=== PATIENT | female | born 1990 | race Caucasian/White ===

== ENCOUNTER 2018-07-19 19:45 | Outpatient (CLI) | payer BC ==
[~2018-07-19 19:45] MED LIST: CHLO1CAP PO; FAMO20TA5 PO; HYOS0.1217 PO; LANS30CA PO; NORE1TAB30 PO
== END 2018-07-20 06:00 | disposition home or self-care (01) ==
LOC: SLEEP 19:45
PROVIDERS: ATTEND Nurse Practitioner Family
DX: G47.10 Hypersomnia, unspecified (principal); G47.00 Insomnia, unspecified; G47.61 Periodic limb movement disorder
CPT/HCPCS: 95810

== ENCOUNTER → 2018-11-02 | Outpatient (CLI) | payer BC ==
--- NOTE | 2018-11-02 07:59 | Diagnostic Imaging Report ---
PROCEDURE: US Gallbladder. TECHNIQUE: Multiple real-time grayscale images were obtained over the right upper quadrant in various projections. INDICATION: Right upper quadrant pain. The gallbladder appeared normal. The wall non-thickened. No pericholecystic edema or fluid. No stone or sludge. The partially visualized common bile duct nondilated where seen, distally was obscured by gas. The visualized portions of the pancreas were unremarkable. The unobstructed right kidney appeared normal. There is no ascites or fluid collection. IMPRESSION: No hepatobiliary abnormality, unobstructed right kidney, no acute finding. Dictated by: Dictated on workstation # [id number]
== END ==
LOC: RAD 06:58
PROVIDERS: ATTEND Family Medicine
DX: R10.11 Right upper quadrant pain (principal)
CPT/HCPCS: 76705

== ENCOUNTER → 2018-11-17 | Outpatient (CLI) | payer BC ==
[~2018-11-17] MED LIST changes: +CATHETER FLUSH 10 ML SYR IV PRN
--- NOTE | 2018-11-17 12:54 | Diagnostic Imaging Report ---
Indication: Right upper quadrant pain. Patient was administered 5.4 mCi technetium 99m Choletec intravenously and imaging over the abdomen was performed. At 45 minutes, patient ingested 8 ounces of Ensure and a gallbladder ejection fraction was calculated. There is homogeneous uptake of activity by the liver. Prompt excretion of activity into the common duct and gallbladder is identified. There is normal passage of activity into the small bowel. Gallbladder ejection fraction is normal at 62%. Impression: Normal HIDA scan and gallbladder ejection fraction. Dictated by: Dictated on workstation # [id number]
== END ==
LOC: CARD 10:36
PROVIDERS: ATTEND Nurse Practitioner Family
DX: R10.11 Right upper quadrant pain (principal)
CPT/HCPCS: 78227

== ENCOUNTER 2018-11-22 05:40 | Outpatient (CLI) | payer BC ==
[~2018-11-22] VITALS: Ht 170.2 cm; Wt 54.4 kg
[~2018-11-22 05:40] MED LIST changes: -CATHETER FLUSH 10 ML SYR IV PRN
[2018-11-22] MEDS ORDERED: bcp PO (13:37)
[2018-11-22] MEDS ORDERED: CHOL500044 PO (13:37)
[2018-11-22] MEDS ORDERED: OMEP40CA36 PO (13:37)
[2018-11-22] MEDS ORDERED: ALPR0.5T PO (13:37)
[2018-11-22] MEDS ORDERED: DULO30CA3 PO (13:37)
[2018-11-22] MEDS ORDERED: HYOS-20 PO (13:37)
== END 2018-11-22 13:40 | disposition home or self-care (01) ==
LOC: PREOP 05:40
PROVIDERS: ATTEND Surgery
DX: Z01.818 Encounter for other preprocedural examination (principal)

== ENCOUNTER 2018-11-25 08:23 | Day surgery (SDC) | payer BC ==
[~2018-11-25] VITALS: Ht 170.2 cm; Wt 54.4 kg
[~2018-11-25 08:23] MED LIST changes: +ALPR0.5T PO; +CHOL500044 PO; +DULO30CA3 PO; +HYOS-20 PO; +OMEP40CA36 PO; +bcp PO
--- OUTSIDE RECORDS SUMMARY | 2018-11-25 08:27 | XMS REPORT | CCD ---
Author Author [facility] Organization [facility] Address [address] [place] [address] Phone Care Team Providers Care Client Consultant Name Role Phone PP Unavailable CCM Unavailable Summary Purpose Interface Exchange Insurance Providers Payer name Policy type / Coverage type Covered constitution party ID Effective Begin Date Effective End Date Blue Cross Blue Shield [facility] Blue Cross/Blue Shield [id number] Unknown Unknown Family history Runs in the family Diagnosis Age At Onset Diabetes mellitus Type 2 Unknown Hypertension Unknown Hypercholesterolemia Unknown Stroke Unknown Myocardial infarction Unknown Skin cancer Unknown Colon cancer Unknown Arthritis Unknown Mother Diagnosis Age At Onset Colitis Unknown Hypertension Unknown Social History Social History Element Codes Description Effective Dates Marital status Unknown Single 10/04/2018 Number of children Unknown 0 10/04/2018 Employment Unknown 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 [employer] 10/04/[address]: 070002221 Never smoker 10/04/[address]: 891558 Currently drinks alcohol 10/04/2018 Frequency of drinks SNOMED CT: 987836828 1-2 drinks per week 10/04/2018 Allergies, Adverse Reactions, Alerts Substance Reaction Codes Entered Date Inactivated Date Status NO KNOWN DRUG ALLERGIES Unknown 10/04/2018 No Inactive Date Active Past Medical History Illness Codes Condition Status Onset Date Resolved Date Periodic limb movement disorder ICD-9: 327.51 ICD-10: G47.61 Active 10/04/2018 Unknown Right upper quadrant pain ICD-9: 789.01 ICD-10: R10.11 Active 10/27/2018 Unknown Encounter for general adult medical examination without abnormal findings ICD-9: V70.0 ICD-10: Z00.00 Active 10/04/2018 Unknown Mixed irritable bowel syndrome ICD-9: 564.1 ICD-10: K58.2 Active 10/04/2018 Unknown Problems Condition Codes Effective Dates Condition Status Periodic limb movement disorder ICD-9: 327.51 ICD-10: G47.61 10/04/2018 Active Right upper quadrant pain ICD-9: 789.01 ICD-10: R10.11 10/27/2018 Active Encounter for general adult medical examination without abnormal findings ICD-9: V70.0 ICD-10: Z00.00 10/04/2018 Active Mixed irritable bowel syndrome ICD-9: 564.1 ICD-10: K58.2 10/04/2018 Active Medications Medication Codes Instructions Start Date Stop Date Status Fill Instructions Questran Light 4 gram oral powder RxNorm: 8641488 1/2 packet PO BID 10/27/2018 11/05/2018 Active pramipexole 1 mg tablet RxNorm: 261128 1 Tablet(s) PO QHS 10/2705/24/2019 Active pramipexole 0.5 mg tablet RxNorm: 791990 1 Tablet(s) PO QHS 10/19/2018 Inactive pramipexole 0.5 mg tablet RxNorm: 056408 1 Tablet(s) PO QHS 10/26/2018 Inactive pramipexole 0.125 mg tablet RxNorm: 730056 1 Tablet(s) PO QHS 10/04/2018 10/19/2018 Inactive Taytulla 1 mg-20 mcg (24)/75 mg (4) capsule RxNorm: 7252424 1 Capsule(s) PO daily No Start Date Active Xanax 0.5 mg tablet RxNorm: 268999 1 Tablet(s) PO as needed No Start Date Active duloxetine 60 mg capsule,delayed release RxNorm: 548076 1 Capsule(s) PO daily No Start Date Active omeprazole 40 mg capsule,delayed release RxNorm: 392387 1 Capsule(s) PO daily No Start Date Active hyoscyamine 0.125 mg sublingual tablet RxNorm: 7031869 1 Tablet(s) SL as needed No Start Date Active Vitamin D3 1,000 unit tablet RxNorm: 349174 1 Tablet(s) PO daily No Start Date Active Medication Administered No Medication Administered data Immunizations No Immunization data Assessments Condition Codes Effective Dates Periodic limb movement disorder ICD-10: G47.61 ICD-9: 327.51 10/27/2018 Right upper quadrant pain ICD-10: R10.11 ICD-9: 789.01 10/27/2018 Mixed irritable bowel syndrome ICD-10: K58.2 ICD-9: 564.1 10/04/2018 Encounter for general adult medical examination without abnormal findings ICD-10: Z00.00 ICD-9: V70.0 10/04/2018 Reason For Visit Reason For Visit Effective Dates Notes spasms/spasticity 10/27/2018 abdominal pain 10/04/2018 Results No Results data Review of Systems System Result Effective Dates Constitutional No recent illness 2018 Constitutional No chills 10/27/2018 Constitutional fatigue 10/27/2018 Constitutional No fever 10/27/2018 Constitutional insomnia 10/27/2018 Constitutional No malaise 10/27/2018 Eyes No vision change 10/27/2018 Ears/Nose/Throat/Neck No dizziness 2018 Ears/Nose/Throat/Neck No dysphagia 2018 Ears/Nose/Throat/Neck No headache 2018 Ears/Nose/Throat/Neck No hearing loss Ears/Nose/Throat/Neck No nasal allergies 10/27/2018 Ears/Nose/Throat/Neck No sore throat Cardiovascular No chest pain/pressure Cardiovascular No dyspnea 10/27/2018 Cardiovascular No edema 10/27/2018 Cardiovascular No exercise intolerance Cardiovascular No fatigue 10/27/2018 Cardiovascular No near-syncope/dizziness 10/27/2018 Respiratory No chest tightness 2018 Respiratory No cough 10/27/2018 Respiratory No dyspnea 10/27/2018 Respiratory No pedal edema 10/27/2018 Gastrointestinal abdominal pain 2018 Gastrointestinal No constipation 2018 Gastrointestinal No diarrhea 10/27/2018 Gastrointestinal No gastroesophageal reflux 10/27/2018 Gastrointestinal nausea 10/27/2018 Genitourinary/Nephrology No dysuria 10/27 Genitourinary/Nephrology No nocturia Genitourinary/Nephrology No urinary incontinence 10/27/2018 Musculoskeletal No stiffness 10/27/2018 Musculoskeletal No swelling 10/27/2018 Musculoskeletal No muscle weakness 2018 Musculoskeletal No myalgias 10/27/2018 Dermatologic No rash 10/27/2018 Dermatologic No sores 10/27/2018 Neurologic No dizziness 10/27/2018 Neurologic No headache 10/27/2018 Neurologic No neck pain 10/27/2018 Neurologic spasms/spasticity 10/27/2018 Neurologic No syncope 10/27/2018 Psychiatric No anxiety 10/27/2018 Psychiatric No depression 10/27/2018 Constitutional No recent illness 2018 Constitutional No chills 10/04/2018 Constitutional fatigue 10/04/2018 Constitutional No fever 10/04/2018 Constitutional insomnia 10/04/2018 Constitutional No malaise 10/04/2018 Eyes No vision change 10/04/2018 Ears/Nose/Throat/Neck No dizziness 2018 Ears/Nose/Throat/Neck No dysphagia 2018 Ears/Nose/Throat/Neck No headache 2018 Ears/Nose/Throat/Neck No hearing loss Ears/Nose/Throat/Neck No nasal allergies 10/04/2018 Ears/Nose/Throat/Neck No sore throat Cardiovascular No chest pain/pressure Cardiovascular No dyspnea 10/04/2018 Cardiovascular No edema 10/04/2018 Cardiovascular No exercise intolerance Cardiovascular No fatigue 10/04/2018 Cardiovascular No near-syncope/dizziness 10/04/2018 Respiratory No chest tightness 2018 Respiratory No cough 10/04/2018 Respiratory No dyspnea 10/04/2018 Respiratory No pedal edema 10/04/2018 Gastrointestinal abdominal pain 2018 Gastrointestinal No constipation 2018 Gastrointestinal No diarrhea 10/04/2018 Gastrointestinal No gastroesophageal reflux 10/04/2018 Genitourinary/Nephrology No dysuria 10/04 Genitourinary/Nephrology No nocturia Genitourinary/Nephrology No urinary incontinence 10/04/2018 Musculoskeletal No stiffness 10/04/2018 Musculoskeletal No swelling 10/04/2018 Musculoskeletal No muscle weakness 2018 Musculoskeletal No myalgias 10/04/2018 Dermatologic No sores 10/04/2018 Neurologic No dizziness 10/04/2018 Neurologic No headache 10/04/2018 Neurologic No neck pain 10/04/2018 Neurologic No syncope 10/04/2018 Psychiatric No anxiety 10/04/2018 Psychiatric No depression 10/04/2018 Gastrointestinal nausea 10/04/2018 Dermatologic No rash 10/04/2018 Neurologic spasms/spasticity 10/04/2018 Physical Exam Exam Name System Name Item Name Status Result Effective Dates Notes Full Exam - General 1995 Constitutional general appearance Development: well developed 10/27/2018 None Full Exam - General 1994 Constitutional general appearance Development: appears stated age 0210/27/2018 None Full Exam - General 1994 Constitutional general appearance Hygiene/Attention to Grooming: good hygiene 10/27/2018 None Full Exam - General 1994 Eyes conjunctiva /eyelids Overall: conjunctiva clear 10/27/2018 None Full Exam - General 1994 Eyes conjunctiva /eyelids Overall: cornea clear 10/27/2018 None Full Exam - General 1994 Eyes conjunctiva /eyelids Overall: eyelids normal 10/27/2018 None Full Exam - General 1994 Eyes pupils and irises Overall: pupils equal, round, reactive to light and accomodation 10/27/2018 None Full Exam - General 1994 Ears/Nose/Throat otoscopic exam Overall: external auditory canals clear 10/27/2018 None Full Exam - General 1994 Ears/Nose/Throat otoscopic exam Overall: tympanic membranes clear 10/27/2018 None Full Exam - General 1994 Ears/Nose/Throat lips/teeth/gingiva Overall: benign lips 10/27/2018 None Full Exam - General 1994 Ears/Nose/Throat lips/teeth/gingiva Overall: normal dentition 10/27/2018 None Full Exam - General 1994 Ears/Nose/Throat oral cavity/pharynx/larynx Overall: oral mucosa clear 10/27/2018 None Full Exam - General 1994 Ears/Nose/Throat oral cavity/pharynx/larynx Overall: oropharyngeal mucosa clear 10/27/2018 None Full Exam - General 1994 Ears/Nose/Throat oral cavity/pharynx/larynx Overall: hypopharynx benign 10/27/2018 None Full Exam - General 1994 Ears/Nose/Throat oral cavity/pharynx/larynx Overall: no masses 10/27/2018 None Full Exam - General 1994 Respiratory auscultation Overall: breath sounds clear bilaterally 10/27/2018 None Full Exam - General 1994 Respiratory respiratory effort/rhythm Overall: no retractions 10/27/2018 None Full Exam - General 1994 Respiratory respiratory effort/rhythm Overall: normal rate 10/27/2018 None Full Exam - General 1994 Cardiovascular extremities Overall: no clubbing 10/27/2018 None Full Exam - General 1994 Cardiovascular auscultation of heart Overall: regular rate 10/27/2018 None Full Exam - General 1994 Cardiovascular auscultation of heart Overall: normal heart sounds 10/27/2018 None Full Exam - General 1994 Abdomen abdominal exam Overall: no tenderness 10/27/2018 None Full Exam - General 1994 Abdomen abdominal exam Overall: normal bowel sounds 10/27/2018 None Full Exam - General 1994 Lymphatic neck nodes Overall: anterior cervical chain benign 10/27/2018 None Full Exam - General 1994 Lymphatic neck nodes Overall: posterior cervical chain benign 10/27/2018 None Full Exam - General 1994 Musculoskeletal spine, ribs and pelvis Overall: spine benign 10/27/2018 None Full Exam - General 1994 Musculoskeletal spine, ribs and pelvis Overall: sacroiliac joint benign 10/27/2018 None Full Exam - General 1994 Musculoskeletal spine, ribs and pelvis Overall: good posture 10/27/2018 None Full Exam - General 1994 Musculoskeletal head and neck Overall: head atraumatic 10/27/2018 None Full Exam - General 1994 Musculoskeletal head and neck Overall: cervical spine benign 10/27/2018 None Full Exam - General 1994 Integument inspection of skin Overall: few scattered moles, no gross abnormalities 10/27/2018 None Full Exam - General 1994 Neurologic deep tendon reflexes Overall: deep tendon reflexes intact 10/27/2018 None Full Exam - General 1994 Neurologic cranial nerves Overall: crainial nerves 2 - 12 grossly intact 10/27/2018 None Full Exam - General 1994 Psychiatric orientation/consciousness Overall: oriented to person, place and time 10/27/2018 None Full Exam - General 1994 Psychiatric mood and affect Overall: normal mood and affect 10/27/2018 None Full Exam - General 1994 Constitutional general appearance Development: well developed 10/04/2018 None Full Exam - General 1994 Constitutional general appearance Development: appears stated age 0110/04/2018 None Full Exam - General 1994 Constitutional general appearance Hygiene/Attention to Grooming: good hygiene 10/04/2018 None Full Exam - General 1994 Eyes conjunctiva /eyelids Overall: conjunctiva clear 10/04/2018 None Full Exam - General 1994 Eyes conjunctiva /eyelids Overall: cornea clear 10/04/2018 None Full Exam - General 1994 Eyes conjunctiva /eyelids Overall: eyelids normal 10/04/2018 None Full Exam - General 1994 Eyes pupils and irises Overall: pupils equal, round, reactive to light and accomodation 10/04/2018 None Full Exam - General 1994 Ears/Nose/Throat otoscopic exam Overall: external auditory canals clear 10/04/2018 None Full Exam - General 1994 Ears/Nose/Throat otoscopic exam Overall: tympanic membranes clear 10/04/2018 None Full Exam - General 1994 Ears/Nose/Throat lips/teeth/gingiva Overall: benign lips 10/04/2018 None Full Exam - General 1994 Ears/Nose/Throat lips/teeth/gingiva Overall: normal dentition 10/04/2018 None Full Exam - General 1994 Ears/Nose/Throat oral cavity/pharynx/larynx Overall: oral mucosa clear 10/04/2018 None Full Exam - General 1994 Ears/Nose/Throat oral cavity/pharynx/larynx Overall: oropharyngeal mucosa clear 10/04/2018 None Full Exam - General 1995 Ears/Nose/Throat oral cavity/pharynx/larynx Overall: hypopharynx benign 10/04/2018 None Full Exam - General 1994 Ears/Nose/Throat oral cavity/pharynx/larynx Overall: no masses 10/04/2018 None Full Exam - General 1994 Respiratory auscultation Overall: breath sounds clear bilaterally 10/04/2018 None Full Exam - General 1994 Respiratory respiratory effort/rhythm Overall: no retractions 10/04/2018 None Full Exam - General 1994 Respiratory respiratory effort/rhythm Overall: normal rate 10/04/2018 None Full Exam - General 1994 Cardiovascular extremities Overall: no clubbing 10/04/2018 None Full Exam - General 1994 Cardiovascular auscultation of heart Overall: regular rate 10/04/2018 None Full Exam - General 1994 Cardiovascular auscultation of heart Overall: normal heart sounds 10/04/2018 None Full Exam - General 1994 Abdomen abdominal exam Overall: no tenderness 10/04/2018 None Full Exam - General 1994 Abdomen abdominal exam Overall: normal bowel sounds 10/04/2018 None Full Exam - General 1994 Lymphatic neck nodes Overall: anterior cervical chain benign 10/04/2018 None Full Exam - General 1994 Lymphatic neck nodes Overall: posterior cervical chain benign 10/04/2018 None Full Exam - General 1994 Musculoskeletal spine, ribs and pelvis Overall: spine benign 10/04/2018 None Full Exam - General 1994 Musculoskeletal spine, ribs and pelvis Overall: sacroiliac joint benign 10/04/2018 None Full Exam - General 1994 Musculoskeletal spine, ribs and pelvis Overall: good posture 10/04/2018 None Full Exam - General 1994 Musculoskeletal head and neck Overall: head atraumatic 10/04/2018 None Full Exam - General 1994 Musculoskeletal head and neck Overall: cervical spine benign 10/04/2018 None Full Exam - General 1994 Integument inspection of skin Overall: few scattered moles, no gross abnormalities 10/04/2018 None Full Exam - General 1994 Neurologic deep tendon reflexes Overall: deep tendon reflexes intact 10/04/2018 None Full Exam - General 1994 Neurologic cranial nerves Overall: crainial nerves 2 - 12 grossly intact 10/04/2018 None Full Exam - General 1994 Psychiatric orientation/consciousness Overall: oriented to person, place and time 10/04/2018 None Full Exam - General 1994 Psychiatric mood and affect Overall: normal mood and affect 10/04/2018 None Procedures No Procedures data Vital Signs Date Vital 10/27/2018 Blood Pressure 1: 130/82 Code : 8480-6 BMI: 19.4 Code : 09432-3 Heart Rate 1 : 116 bpm Height: 5'7" SpO2: 99% Weight: 124 lbs 10/04/2018 Blood Pressure 1: 138/80 Code : 8480-6 BMI: 19.4 Code : 69659-8 Heart Rate 1 : 112 bpm Height: 5'7" SpO2: 99% Weight: 124 lbs Functional Status No Functional Status data History of Present Illness Symptom Name Status Result Effective Date Notes Location on both legs 10/27/2018 None Location on both arms 10/27/2018 None Quality intermittent 10/27/2018 None Onset and Resolution ongoing 10/27/2018 None Onset of Symptom ~1 years ago 10/27/2018 None Frequency of Episodes daily 10/27/2018 None Triggers no known associated factors 10/27/2018 None Limitation on Activities does not limit activities 10/27/2018 None Location diffusely None Quality intermittent 10/04/2018 None Onset of Symptom during tenage years 10/04/2018 None Location on the left leg 10/04/2018 muscle restlessness - worst at night Location on the right leg 10/04/2018 None Advance Directives No Advance Directive data Encounters Encounter Performer Location Codes Date ([id number]) [id number] EST. PATIENT, LEVEL III Diagnosis: Right upper quadrant pain[ICD10: R10.11] Diagnosis: Periodic limb movement disorder[ICD10: G47.61] [facility] CPT-4: 58706 10/27/2018 ([id number]) PREV VISIT NEW AGE 18-39 Diagnosis: Encounter for general adult medical examination without abnormal findings[ICD10: Z00.00] [facility] CPT-4: 83411 10/04/2018 Plan of Care Planned Activity Notes Codes Status Date Visit Plan: Abdominal pain - with diarrhea/loose stools - discussed with pt - will order a gallbladder ultrasound and she will start on questran. - She will have a 10 day trial on the questran. She is to call with her symptoms. Restless Leg Syndrome - uncontrolled symptoms - pt to start on higher dose of pramipexole. 10/27/2018 Patient Education: Patient Medication Summary Completed 10/27/2018 Visit Plan: Well Adult - pt was counseled about diet, exercise, and encouraged to follow a heart healthy diet and increase activity level. The patient was instructed to RTC yearly for well adult exams and PRN for acute illnesses. The pt was also instructed to have yearly labs for check of cholesterol, thyroid, chem panel, CBC, and renal functioning. Restless Leg Syndrome - uncontrolled symptoms - I have recommended pt to start on a low dose of iron two to three times a week - to take with orange juice. RX for pramipexole 0.125mg at [facility]. Irritable bowel syndrome - - avoid food triggers, start on probiotic. 10/04/2018 Appointment: [facility]: [address] [place], [place] [id number] New Patient 10/04/2018 Patient Education: Patient Medication Summary Completed 10/04/2018 Instructions Comment . Well Adult - pt was counseled about diet, exercise, and encouraged to follow a heart healthy diet and increase activity level. The patient was instructed to RTC yearly for well adult exams and PRN for acute illnesses. The pt was also instructed to have yearly labs for check of cholesterol, thyroid, chem panel, CBC, and renal functioning. Restless Leg Syndrome - uncontrolled symptoms - I have recommended pt to start on a low dose of iron two to three times a week - to take with orange juice. RX for pramipexole 0.125mg at HS. Irritable bowel syndrome - - avoid food triggers, start on probiotic. . Abdominal pain - with diarrhea/loose stools - discussed with pt - will order a gallbladder ultrasound and she will start on questran. - She will have a 10 day trial on the questran. She is to call with her symptoms. Restless Leg Syndrome - uncontrolled symptoms - pt to start on higher dose of pramipexole.
--- OUTSIDE RECORDS SUMMARY | 2018-11-25 08:27 | XMS REPORT | CCD ---
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 [employer] 10/04/[address]: 041563245 Never smoker 10/04/[address]: 448439 Currently drinks alcohol 10/04/2018 Frequency of drinks SNOMED CT: 181500407 1-2 drinks per week 10/04/2018 Allergies, Adverse Reactions, Alerts Substance Reaction Codes Entered Date Inactivated Date Status NO KNOWN DRUG ALLERGIES Unknown 10/04/2018 No Inactive Date Active Past Medical History Illness Codes Condition Status Onset Date Resolved Date Encounter for general adult medical examination without abnormal findings ICD-9: V70.0 ICD-10: Z00.00 Active 10/04/2018 Unknown Mixed irritable bowel syndrome ICD-9: 564.1 ICD-10: K58.2 Active 10/04/2018 Unknown Periodic limb movement disorder ICD-9: 327.51 ICD-10: G47.61 Active 10/04/2018 Unknown Problems Condition Codes Effective Dates Condition Status Encounter for general adult medical examination without abnormal findings ICD-9: V70.0 ICD-10: Z00.00 10/04/2018 Active Mixed irritable bowel syndrome ICD-9: 564.1 ICD-10: K58.2 10/04/2018 Active Periodic limb movement disorder ICD-9: 327.51 ICD-10: G47.61 10/04/2018 Active Medications Medication Codes Instructions Start Date Stop Date Status Fill Instructions pramipexole 0.5 mg tablet RxNorm: 261392 1 Tablet(s) PO QHS 2019 Active pramipexole 0.5 mg tablet RxNorm: 879250 1 Tablet(s) PO QHS 10/19/2018 Inactive pramipexole 0.125 mg tablet RxNorm: 362673 1 Tablet(s) PO QHS 10/04/2018 10/19/2018 Inactive Taytulla 1 mg-20 mcg (24)/75 mg (4) capsule RxNorm: 5098064 1 Capsule(s) PO daily No Start Date Active Xanax 0.5 mg tablet RxNorm: 103456 1 Tablet(s) PO as needed No Start Date Active duloxetine 60 mg capsule,delayed release RxNorm: 403927 1 Capsule(s) PO daily No Start Date Active omeprazole 40 mg capsule,delayed release RxNorm: 084647 1 Capsule(s) PO daily No Start Date Active hyoscyamine 0.125 mg sublingual tablet RxNorm: 5982337 1 Tablet(s) SL as needed No Start Date Active Vitamin D3 1,000 unit tablet RxNorm: 258458 1 Tablet(s) PO daily No Start Date Active Medication Administered No Medication Administered data Immunizations No Immunization data Assessments Condition Codes Effective Dates Periodic limb movement disorder ICD-10: G47.61 ICD-9: 327.51 10/04/2018 Mixed irritable bowel syndrome ICD-10: K58.2 ICD-9: 564.1 10/04/2018 Encounter for general adult medical examination without abnormal findings ICD-10: Z00.00 ICD-9: V70.0 10/04/2018 Reason For Visit Reason For Visit Effective Dates Notes abdominal pain 10/04/2018 Results No Results data [...] Effective Dates Notes Full Exam - General 1994 Constitutional general [...] None Full Exam - General 1995 Ears/Nose/Throat lips/teeth/gingiva Overall: benign lips 10/04/2018 None Full Exam - General 1995 Ears/Nose/Throat lips/teeth/gingiva Overall: normal dentition 10/04/2018 None Full Exam - General 1994 Ears/Nose/Throat oral cavity/pharynx/larynx Overall: oral mucosa clear 10/04/2018 None Full Exam - General 1994 Ears/Nose/Throat oral cavity/pharynx/larynx Overall: oropharyngeal mucosa clear 10/04/2018 None Full Exam - General 1994 Ears/Nose/Throat oral cavity/pharynx/larynx Overall: hypopharynx benign 10/04/2018 [...] No Procedures data Vital Signs Date Vital 10/04/2018 Blood Pressure 1: 138/80 Code : 8480-6 BMI: 19.4 Code : 06123-3 Heart Rate 1 : 112 bpm Height: 5'7" SpO2: 99% Weight: 124 lbs Functional Status No Functional Status data History of Present Illness Symptom Name Status Result Effective Date Notes Location diffusely None Quality intermittent 10/04/2018 None Onset of Symptom during tenage years 10/04/2018 None Location on the left leg 10/04/2018 muscle restlessness - worst at night Location on the right leg 10/04/2018 None Advance Directives No Advance Directive data Encounters Encounter Performer Location Codes Date (72078) PREV VISIT NEW AGE 18-39 Diagnosis: Encounter for general adult medical examination without abnormal findings[ICD10: Z00.00] [facility] CPT-4: 59387 10/04/2018 Plan of Care Planned Activity Notes Codes Status Date Visit Plan: Well Adult - pt was [...] on probiotic. 10/04/2018 Appointment: Marielle Haley WPtel: [address] [place], [place] [id number] New Patient 10/04/2018 Patient Education: Patient Medication [...]
--- OUTSIDE RECORDS SUMMARY | 2018-11-25 08:27 | XMS REPORT | CCD ---
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 [employer] 10/04/[address]: 480254864 Never smoker 10/04/[address]: 687785 Currently drinks alcohol 10/04/2018 Frequency of drinks SNOMED CT: 741211894 1-2 drinks per week 10/04/2018 Allergies, Adverse [...] Start Date Stop Date Status Fill Instructions duloxetine 30 mg capsule,delayed release RxNorm: 794361 1 Capsule(s) PO daily 11/11/2018 06/08/2019 Active duloxetine 30 mg capsule,delayed release RxNorm: 673329 1 Capsule(s) PO daily 11/11/2018 11/10/2018 Inactive pramipexole 1 mg tablet RxNorm: 684395 1 Tablet(s) PO QHS 10/2705/24/2019 Active Questran Light 4 gram oral powder RxNorm: 9800119 1/2 packet PO BID 10/27/2018 11/05/2018 Inactive pramipexole 0.5 mg tablet RxNorm: 024174 1 Tablet(s) PO QHS 10/19/2018 Inactive pramipexole 0.5 mg tablet RxNorm: 994713 1 Tablet(s) PO QHS 10/26/2018 Inactive pramipexole 0.125 mg tablet RxNorm: 753160 1 Tablet(s) PO QHS 10/04/2018 10/19/2018 Inactive Taytulla 1 mg-20 mcg (24)/75 mg (4) capsule RxNorm: 0433191 1 Capsule(s) PO daily No Start Date Active Xanax 0.5 mg tablet RxNorm: 327677 1 Tablet(s) PO as needed No Start Date Active omeprazole 40 mg capsule,delayed release RxNorm: 047853 1 Capsule(s) PO daily No Start Date Active hyoscyamine 0.125 mg sublingual tablet RxNorm: 0745532 1 Tablet(s) SL as needed No Start Date Active Vitamin D3 1,000 unit tablet RxNorm: 638175 1 Tablet(s) PO daily No Start Date Active duloxetine 60 mg capsule,delayed release RxNorm: 815470 1 Capsule(s) PO daily No Start Date 11/10/2018 Inactive Medication Administered No Medication Administered data Immunizations [...] 1994 Constitutional general appearance Development: well developed 10/27/2018 [...] Code : 8480-6 BMI: 19.4 Code : 79274-5 Heart Rate 1 : 116 bpm Height: 5'7" SpO2: 99% Weight: 124 lbs 10/04/2018 Blood Pressure 1: 138/80 Code : 8480-6 BMI: 19.4 Code : 75116-1 Heart Rate 1 : 112 bpm Height: [...] data Encounters Encounter Performer Location Codes Date (40741) 65622 EST. PATIENT, LEVEL III Diagnosis: Right upper quadrant pain[ICD10: R10.11] Diagnosis: Periodic limb movement disorder[ICD10: G47.61] [facility] CPT-4: 76819 10/27/2018 (06212) PREV VISIT NEW AGE 18-39 Diagnosis: Encounter for general adult medical examination without abnormal findings[ICD10: Z00.00] [facility] CPT-4: 05866 10/04/2018 Plan of Care Planned Activity Notes [...] start on higher dose of pramipexole. 10/27/2018 Appointment: [facility] WPtel: [address] [place], [place] [phone] (15 min) Moderate 10/27/2018 Patient Education: Patient Medication Summary Completed [...] on probiotic. 10/04/2018 App[facility]ment: [id number] [facility] 10/04/2018 Patient Education: Patient Medication [...]
--- OUTSIDE RECORDS SUMMARY | 2018-11-25 08:28 | XMS REPORT | CCD ---
Author Author [facility] Organization [facility] Address [address] [place] [address] Phone Care Team Providers Care Top Stop Attacher Name Role Phone PP Unavailable CCM Unavailable Summary Purpose Interface Exchange Insurance Providers Payer name Policy type / Coverage type Covered green party ID Effective Begin Date Effective End Date Blue Cross Blue Shield 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 [employer] 10/04/[address]: 083135505 Never smoker 10/04/[address]: 324529 Currently drinks alcohol 10/04/2018 Frequency of drinks SNOMED CT: 570954306 1-2 drinks per week 10/04/2018 Allergies, Adverse [...] Date Stop Date Status Fill Instructions pramipexole 0.125 mg tablet RxNorm: 116622 1 Tablet(s) PO QHS 10/04/2018 05/01/2019 Active Taytulla 1 mg-20 mcg (24)/75 mg (4) capsule RxNorm: 1692685 1 Capsule(s) PO daily No Start Date Active Xanax 0.5 mg tablet RxNorm: 761529 1 Tablet(s) PO as needed No Start Date Active duloxetine 60 mg capsule,delayed release RxNorm: 456010 1 Capsule(s) PO daily No Start Date Active omeprazole 40 mg capsule,delayed release RxNorm: 416427 1 Capsule(s) PO daily No Start Date Active hyoscyamine 0.125 mg sublingual tablet RxNorm: 4865900 1 Tablet(s) SL as needed No Start Date Active Vitamin D3 1,000 unit tablet RxNorm: 474502 1 Tablet(s) PO daily No Start Date [...] - General 1995 Ears/Nose/Throat oral cavity/pharynx/larynx Overall: oropharyngeal mucosa clear [...] Code : 8480-6 BMI: 19.4 Code : 52278-1 Heart Rate 1 : 112 bpm Height: [...] data Encounters Encounter Performer Location Codes Date (94847) PREV VISIT NEW AGE 18-39 Diagnosis: Encounter for general adult medical examination without abnormal findings[ICD10: Z00.00] [facility] CPT-4: 57283 10/04/2018 Plan of Care Planned Activity Notes [...] avoid food triggers, start on probiotic. 10/04/2018 Patient Education: Patient Medication Summary Completed [...]
--- NOTE | 2018-11-25 08:35 | Progress Note-Pre Operative ---
Pre-Operative Progress Note H&P Reviewed The H&P was reviewed, patient examined and no changes noted. Date Seen by Provider: Nov 25, 2018 Time Seen by Provider: 08:30 Date H&P Reviewed: Nov 25, 2018 Time H&P Reviewed: 08:25 Pre-Operative Diagnosis: Symptomatic Biliary dyskinesia, Reflux GUCCI JIMÉNEZ APRN Nov 25, 2018 08:35
[2018-11-25] MEDS ORDERED: HYDR-3816 PO (08:37)
--- NOTE | 2018-11-25 08:39 | Discharge Inst-Surgical ---
D/C Lap Instructions-KIDO New, Converted, or Re-Newed RX: RX on Chart Follow Up Appt in 2 weeks Activity as tolerated No driving for 24 hours No driving while on pain medications Incentive Spirometry use every 2 hours while awake Regular Diet Avoid Alcohol, Caffeine, Spicy [place] and Acid foods. Drink 64 fluid oz or more of fluids per day. Symptoms to Report: Fever over 101 degree F, Nausea/Vomiting Infection Signs and Symptoms to report: Increased redness, Foul odor of wound, Increased drainage Bathing instructions: May shower Operative Area Clean/Dry; Keep incision clean/dry If any problems/questions: Contact your physician or go to Emergency Room GUCCI JIMÉNEZ APRN Nov 25, 2018 08:39
[2018-11-25] MEDS ORDERED: ceFAZolin INJECTION 1,000 MG in WATER (STERILE) FOR INJECTION 10 ML IV ONE (08:45)
[2018-11-25] MEDS ORDERED: ACETAMINOPHEN 325 MG TABLET PO PRN (08:45)
[2018-11-25] MEDS ORDERED: HYDROcodone/APAP 5 MG/325 MG (LORTAB) TAB PO ONE (08:45)
[2018-11-25] MEDS ORDERED: ONDANSETRON 4 MG/2 ML (SDV) Z0FRAN IVP PRN ×2 (08:45→13:15)
[2018-11-25] MEDS ORDERED: LACTATED RINGERS 1,000 ML IV PRN (08:46)
[2018-11-25 08:55] VITALS: BP 124/96
[2018-11-25] MEDS: LACTATED RINGERS 1,000 ML IV PRN ×2 (08:58→11:50)
[2018-11-25] MEDS ORDERED: ONDANSETRON 4 MG/2 ML (SDV) Z0FRAN IV ONE (09:00)
[2018-11-25] MEDS ORDERED: FAMOTIDINE 20MG/2ML IV (PEPCID) IV ONE (09:00)
[2018-11-25] MEDS ORDERED: SCOPOLAMINE 1.5 MG (TRANSDERM-SCOP) PATCH TOP ONE (09:00)
[2018-11-25] MEDS ORDERED: BUP/EPI 0.5% 1:200,000 (SENSORCAINE) 30 ML VIAL ONE (10:15)
[2018-11-25] MEDS ORDERED: fentaNYL INJECTION 100 MCG/2 ML AMP ONE (11:30)
[2018-11-25] MEDS ORDERED: MIDAZOLAM 2 MG/2 ML (VERSED) VIAL ONE (11:30)
[2018-11-25] MEDS ORDERED: GLYCOPYRROLATE 0.2 MG/ML (ROBINUL) 2 ML VIAL ONE (12:37)
[2018-11-25] MEDS ORDERED: proPOfol 200 MG/20 ML (DIPRIVAN) VIAL IV ONE (12:37)
[2018-11-25] MEDS ORDERED: LIDOCAINE PF 2% 5 ML (XYLOCAINE) VIAL ONE (12:37)
[2018-11-25] MEDS ORDERED: NEOSTIGMINE 1 MG/ML 5 ML SYRINGE ONE (12:37)
[2018-11-25] MEDS ORDERED: SEVOFLURANE (ULTANE) 15 ML INHAL SOLN ONE (12:37)
[2018-11-25] MEDS ORDERED: DEXAMETHASONE 10 MG/ML (DECADRON) 1 ML VIAL ONE (12:37)
[2018-11-25] MEDS ORDERED: ONDANSETRON 4 MG/2 ML (SDV) Z0FRAN ONE (12:37)
[2018-11-25] MEDS ORDERED: ROCURONIUM 10 MG/ML 5 ML SYRINGE IV ONE (12:37)
--- NOTE | 2018-11-25 13:11 | Progress Note-Post Operative ---
Post-Operative Progess Note Surgeon (s)/Application Support Lead (s) Surgeon JOHANNY RUIZ MD Application Support Lead: kellie vizcaino CANE FLUME WATCHER Pre-Operative Diagnosis Symptomatic Biliary dyskinesia, Reflux Post-Operative Diagnosis same. reflux esophagitis(stage 2), small HH(1.5cm), moderate gastritis. Procedure & Operative Findings Date of Procedure 11/25/18 Procedure Performed/Findings laparoscopic cholecystectomy. EGD with bx. Anesthesia Type GET Estimated Blood Loss Estimated blood loss (mL): minimal Specimens/Packing Specimens Removed gallbladder, ge jxn, antrum JOHANNY RUIZ MD Nov 25, 2018 13:11
[2018-11-25] MEDS ORDERED: HYDROmorphone 2 MG/ML VIAL (DILAUDID) IV ONE (13:15)
[2018-11-25] MEDS ORDERED: morphine INJ 10 MG/ML 1ML (SYR OR VIAL) IVP ONE (13:15)
[2018-11-25 14:05] VITALS: BP 126/71
--- NOTE | 2018-11-25 14:20 | Anesthesia-General Post-Op ---
General Patient Condition Mental Status/LOC: Same as Preop Cardiovascular: Satisfactory Nausea/Vomiting: Absent Respiratory: Satisfactory Pain: Controlled Complications: Absent Post Op Complications Complications None Follow Up Care/Instructions Patient Instructions None needed. Anesthesia/Patient Condition Patient Condition Patient is doing well, no complaints, stable vital signs, no apparent adverse anesthesia problems. No complications reported per nursing. MEME DUARTE CRNA Nov 25, 2018 14:20
[2018-11-25] MEDS: morphine INJ 10 MG/ML 1ML (SYR OR VIAL) IVP PRN ×4 (14:27→14:30)
[2018-11-25 14:35] VITALS: BP 111/71
[2018-11-25 15:05] VITALS: BP 109/73
[2018-11-25 15:45] VITALS: BP 109/73
--- NOTE | 2018-11-25 18:03 | OPERATIVE REPORT ---
DATE OF SERVICE: 11/25/2018 ATTENDING PRIMARY CARE PHYSICIAN: Dr. Haley. PREOPERATIVE DIAGNOSES: Symptomatic biliary dyskinesia, gastroesophageal reflux disease, peptic ulcer disease. POSTOPERATIVE DIAGNOSES: Chronic acalculous cholecystitis with cholesterolosis of the gallbladder. Reflux esophagitis stage II, small hiatal hernia 1.5 cm in size, moderate gastritis with slight increased rugal folds. PROCEDURE: Laparoscopic cholecystectomy, EGD with biopsy. SURGEON: Johanny Naranjo MD ROTARY DRILLER HELPER: Augustus Sweet APRN ANESTHESIA: General endotracheal. ESTIMATED BLOOD LOSS: Minimal. FINDINGS: Chronic acalculous cholecystitis with cholesterolosis of the gallbladder. Reflux esophagitis stage II, small hiatal hernia 1.5 cm in size, moderate gastritis with slight increased rugal folds. DISPOSITION: The patient tolerated the procedure well. INDICATION: The patient is a 28-year-old female known to us. We had seen her for peptic ulcer disease and underwent an EGD back in 2010. She was found to have a reflux esophagitis as well as gastritis; however, biopsies were negative for H. pylori as well as negative for Huff's esophagus. She has had a right upper abdominal quadrant pain usually after meals as well as associated nausea and diarrhea. She reports that this has been going on for several years; however, has become much more significant in the past 3 months. She states that she also does have radiation of pain towards the back. A HIDA scan was performed, which did show a low ejection fraction as well as reproduction of symptoms consistent with a biliary dyskinesia. She is also having epigastric burning sensation as well as crampy pain, which may also indicate continued peptic ulcer disease as well as reflux esophagitis. PROCEDURE IN DETAIL: The patient was brought to the operating room, laid supine on the table. After adequate IV pain and sedative medications and general endotracheal intubation, the abdomen was prepped and draped in standard surgical fashion. A 0.5% Marcaine with epinephrine was used to anesthetize the overlying skin in the left upper abdominal quadrant. A small transverse skin incision was made using a 15 blade. An 0 silk suture was applied to the medial aspect of the incision for retraction and a Veress needle was inserted with a low opening pressure of 0 mmHg and the abdomen was insufflated to 15 mmHg pressure. The Veress needle was removed and a 5 mm Xcel trocar was placed, followed by a 5 mm 45-degree angle laparoscope visualizing the peritoneal cavity. A 4-quadrant abdominal exploration was performed. The gallbladder was slightly distended. It was visualized that omentum, liver, stomach, small bowel appeared normal. Under direct visualization, we then proceeded to place a supraumbilical 10 mm port after the skin and peritoneal lining were anesthetized using 0.5% Marcaine with epinephrine and a transverse skin incision was made using a 15 blade. In a similar manner, a right upper abdominal quadrant 5 mm port was placed. The patient was then placed in reverse Trendelenburg position as well as plane right side up and left side down. The fundus of the gallbladder was then retracted anteriorly and superiorly. The hepatoduodenal ligament was then opened using cautery as well as blunt dissection using the hook instrument. The entire critical view of safety was identified including the triangle of Calot as well as the cystic duct and artery as the only two structures going into the gallbladder as well as the cystic plate behind the proximal gallbladder. A timeout was then taken. Cystic duct and artery were then clipped proximally, distally and cut with EndoShears. The gallbladder was then dissected off of the liver bed using cautery on the hook instrument with visualization of good hemostasis as well as no leaking ducts of Luschka. The gallbladder was removed through the 10 mm port site using an EndoCatch bag. The 10 mm port site fascia and peritoneum were then closed under direct visualization using Dago-Chuckie device and 0 Vicryl suture. The abdomen was desufflated and the remaining ports were removed. All skin incisions were closed using 4-0 Monocryl running subcuticular suture. Wounds were then cleaned and covered with Dermabond. The patient tolerated this portion of the procedure well. She will be instructed to do no heavy lifting or exertion for the next two weeks and then slowly advance as tolerated and also, start a clear liquid diet; however, avoid fatty or greasy foods and slowly incorporate these over time, which she should be able to tolerate over time. Under the same anesthesia, we then proceeded with the EGD. The mouth piece was applied and an endoscope was placed in the mouth, visualizing the pharynx and hypopharyngeal region. Vocal cords, epiglottis and vallecula were identified and appeared to be normal. The endoscope was then gently intubated. The esophageal opening and esophagus insufflated. The endoscope was then advanced to the first, second and third portion of esophagus. At the level of the GE junction, reflux esophagitis stage II identified. There were no ulcers or strictures identified in this region. A biopsy was taken with forceps with visualization of good hemostasis. The endoscope was then advanced in the stomach and endoscope retroflexed, visualizing a small hiatal hernia, approximately 1.5 cm in size. There was a moderate severity gastritis as well as slight increased rugal folds, which may indicate some level of hypergastrinemia. A biopsy was taken of the stomach antrum with visualization of good hemostasis. The endoscope was then advanced to the pylorus and the first and second portion of the duodenum, which appeared normal with no distal obstructions. The endoscope was then slowly withdrawn while taking a second look and suctioning of residual air with no additional findings. The patient tolerated the procedure well. We will await the biopsy results. She does have a moderate severity gastritis as well as potential for hypergastrinemia, which may be secondary to chronic proton pump inhibitor use. However, there are other etiologies, cannot be ruled out. We will proceed with recommendation of the necessary lifestyle and diet accommodation including small and more frequent meals, avoidance of eating at night as well as head elevation while lying supine. She also needs to avoid caffeinated beverages, spicy, greasy and acidic foods. We will also have her discontinue omeprazole and start a trial of Protonix 40 mg daily. Job ID: [id number] DocumentID: [id number] Dictated Date: 11/25/2018 13:19:55 Executive Vp Date: 11/25/2018 18:02:18 Dictated By: JOHANNY NARANJO MD
== END 2018-11-25 15:45 | disposition home or self-care (01) ==
LOC: SDC 08:23
PROVIDERS: ATTEND Surgery
DX: K81.1 Chronic cholecystitis (principal); K21.0 Gastro-esophageal reflux disease with esophagitis; K44.9 Diaphragmatic hernia without obstruction or gangrene; K29.70 Gastritis, unspecified, without bleeding; F41.9 Anxiety disorder, unspecified; Z79.899 Other long term (current) drug therapy
CPT/HCPCS: 84703; 87081; 88304; 88305

== ENCOUNTER 2020-12-11 10:58 | Outpatient (CLI) | payer BC ==
[~2020-12-11] VITALS: Ht 170.2 cm; Wt 60.5 kg
[~2020-12-11 10:58] MED LIST changes: +HYDR-34 PO; +OMEP40CA27 PO; -OMEP40CA36 PO
[2020-12-11 11:10] VITALS: BP 123/87
[2020-12-11] MEDS ORDERED: IRON DEXTRAN 1,000 MG/NS 250 ML IVPB IV ONE ×2 (12:00)
[2020-12-11] MEDS ORDERED: IRON DEXTRAN 25 MG/NS 6.25 ML TOTAL VOLUME IV ONE ×3 (12:00)
== END 2020-12-11 14:28 | disposition home or self-care (01) ==
LOC: SDC 10:58
PROVIDERS: ATTEND Psychiatry & Neurology Neurology
DX: D50.9 Iron deficiency anemia, unspecified (principal)
CPT/HCPCS: 96365

== ENCOUNTER 2021-08-19 05:35 | Outpatient (RCR) | payer BC ==
[~2021-08-19] VITALS: Ht 170.2 cm; Wt 54.9 kg
[~2021-08-19 05:35] MED LIST changes: +AMPH20CA5 PO; +AMPH20TA2 PO; +CALCIUM PO; +L.AC1CAP6 PO; +LORA-404 PO; +MAG PO; -OMEP40CA27 PO; +OMEP40CA6 PO; +TRZ50T PO; +ZINC PO
== END 2021-08-19 09:31 | disposition home or self-care (01) ==
LOC: PREOP 05:35
PROVIDERS: ATTEND Surgery
DX: Z01.812 Encounter for preprocedural laboratory examination (principal); K21.9 Gastro-esophageal reflux disease without esophagitis; D64.9 Anemia, unspecified; Z20.822 Contact with and (suspected) exposure to COVID-19
CPT/HCPCS: 87635

== ENCOUNTER 2021-08-21 12:07 | Day surgery (SDC) | payer BC ==
[2021-08-21] VITALS (7 sets, daily range): BP systolic 105–118; BP diastolic 63–86
[~2021-08-21] VITALS: Ht 170.2 cm; Wt 54.9 kg
--- OUTSIDE RECORDS SUMMARY | 2021-08-21 12:11 | XMS REPORT | Encounter Summary ---
Author Author [facility] Organization [facility] Address Unknown Phone Unavailable Care Team Providers Care Dance Therapist Name Role Phone Marielle Haley MD PCP Reason for Visit * Reason Comments Medication Refill Encounter Details Care Team Description Date Type Department Gracy Moore MD [address], [place] [address] [place] [id number] 08/14/2021 Refill Neurology: [facility] [address] [place] [address]. [address], [address] [place] [id number] Social History Date Tobacco Use Types Packs/Day Years Used Never Smoker Smokeless Tobacco: Never Used Comments Alcohol Use Standard Drinks/Week 2-3 drinks a week Yes 0 (1 standard drink = 0.6 o z pure alcohol) Alcohol Habits Answer Date Recorded How often do you have a drink containing alcohol? No t asked How many drinks containing alcohol do you have on No t asked a typical day when you are drinking? How often do you have six or more drinks on one Not asked occasion? Comment: 2-3 drinks a week 11/08/2020 Sex Assigned at Date Recorded Female 10/22/2020 12:33 PM [employer] documented as of this encounter Ordered Prescriptions Start Date End Date Prescription Sig Dispensed Refills 09/25/2021 amphetamine-dextroampheta Take 1 30 capsule 0 mine XR (ADDERALL XR) 20 capsule po Q mg capsule AM 10/25/2021 amphetamine-dextroampheta Take 1 30 capsule 0 mine XR (ADDERALL XR) 20 capsule po Q mg capsule AM 08/16/2021 traZODone (DESYREL) 50 mg TAKE 1/2 TO 1 30 tablet 5 tablet TABLET BY MOUTH AT BEDTIME NEEDED FOR SLEEP documented in this encounter Plan of Treatment Not on filedocumented as of this encounter Visit Diagnoses Not on filedocumented in this encounter Discontinued Medications Start Date End Date Medication Sig Discontinue Reason 01/01/2021 08/16/2021 amphetamine-dextroampheta Take one Other mine XR (ADDERALL XR) 20 capsule by mg capsule mouth every morning 07/01/2021 08/16/2021 ADDERALL XR 20 mg capsule TAKE ONE Other CAPSULE BY MOUTH EVERY MORNING 04/23/2021 08/16/2021 amphetamine-dextroampheta Take one Other mine XR (ADDERALL XR) 20 capsule by mg capsule mouth every morning 03/26/2021 08/16/2021 amphetamine-dextroampheta Take one Other mine XR (ADDERALL XR) 20 capsule by mg capsule mouth every morning 01/29/2021 08/16/2021 amphetamine-dextroampheta Take one Other mine XR (ADDERALL XR) 20 capsule by mg capsule mouth every morning 04/23/2021 08/16/2021 traZODone (DESYREL) 50 mg Take tablet one-half tablet to one tablet by mouth at bedtime as needed for Sleep. 07/29/2021 08/16/2021 amphetamine-dextroampheta Take 1 Reorder mine XR (ADDERALL XR) 20 capsule po Q mg capsule AM documented as of this encounter Additional Health Concerns Noted Time Assessment 11/08/2020 9:12 AM [employer] PHQ-9 Depression Total Score: 20 07/17/2021 11:06 AM [employer] A fall risk assessment has been complet ed for the patient 07/17/2021 11:07 AM [employer] PHQ-2 Depression Total Score: 2 documented as of this encounter Care Teams Start Date End Date Dance Therapist Relationship Specialty 11/06/20 Marielle Haley MD PCP - General Family [address] [place] [id number] documented as of this encounter
--- OUTSIDE RECORDS SUMMARY | 2021-08-21 12:11 | XMS REPORT | CCD ---
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 [employer] 10/04/[address]: 746259837 Never smoker 10/04/[address]: 132363 Currently drinks alcohol 10/04 Frequency of drinks SNOMED CT: 688693660 1-2 drinks per week Allergies, Adverse Reactions, Alerts Substance Reaction Codes Entered Date Inactivated Date Status NO KNOWN DRUG ALLERGIES Unknown 10/04/2018 No Inactive Date Active Problems Condition Codes Effective Dates Condition Status Menstrual bleeding problem ICD-10: N93.9 ICD-9: 626.9 10/23/2020 Active Menstrual cycle problem ICD-10: N92.6 ICD-9: 626.4 10/23/2020 Active Generalized anxiety disorder ICD-10: F41.1 ICD-9: 300.00 10/15/2020 Active Major depressive disorder, single episode, moderate IC D-10: F32.1 ICD-9: 296.22 10/27/2019 Active Periodic limb movement disorder ICD-10: G47.61 ICD-9: 327.51 10/04/2018 Active Sinus congestion ICD-10: R09.81 ICD-9: 478.19 10/15/2020 Active Mixed irritable bowel syndrome ICD-10: K58.2 ICD-9: 564.1 10/04/2018 Active Gastro-esophageal reflux disease without esophagitis I CD-10: K21.9 ICD-9: 530.81 02/23/2019 Active Right upper quadrant pain ICD-10: R10.11 ICD-9: 789.01 10/27/2018 Active Encounter for general adult medical examination withou t abnormal findings ICD- 10: Z00.00 ICD-9: V70.0 10/04/2018 Active Medications Medication Codes Instructions Start Date Stop Date Status Fill Instructions duloxetine 60 mg capsule,delayed release RxNorm: 805982 TAKE ONE (1) CAPSULE BY MOUTH DAILY WITH 30 MG CAPSULE TO EQUAL 90 MG 08/12/2021 11/09/2021 Ac tive This prescription was filled on 07/19/2021. Any refills authorized will be placed on file. omeprazole 40 mg capsule,delayed release RxNorm: 262617 TAKE 1 CAPSULE BY MOUTH TWICE DAILY 03/27/2021 07/24/2021 Inactive This prescriptio n was filled on 03/04/2021. Any refills authorized will be placed on file. duloxetine 60 mg capsule,delayed release RxNorm: 789829 TAKE ONE (1) CAPSULE BY MOUTH DAILY WITH 30 MG CAPSULE TO EQUAL 90 MG 11/12/2020 11/12/2020 In active omeprazole 40 mg capsule,delayed release RxNorm: 669092 TAKE 1 CAPSULE BY MOUTH TWICE DAILY 10/05/2020 10/05/2020 Inactive omeprazole 40 mg capsule,delayed release RxNorm: 937770 1C PO BID 03/05/2020 08/01/2020 Inactive lorazepam 0.5 mg tablet RxNorm: 950187 0.5 - 1 Tablet(s) Oral t wo times a day 12/08/2019 01/07/2020 Inactive duloxetine 30 mg capsule,delayed release RxNorm: 703754 1 Capsule(s) Oral every day 10/27/2019 05/24/2020 Inactive this is in addit ion to the 60 mg dose - for a total of 90 mg duloxetine 60 mg capsule,delayed release RxNorm: 061821 1 Capsule(s) Oral every day 10/27/2019 10/21/2020 Inactive this is in addit ion to the 30 mg dose - for a total of 90 mg omeprazole 40 mg capsule,delayed release RxNorm: 574620 1C PO BID 10/03/2019 12/31/2019 Inactive duloxetine 30 mg capsule,delayed release RxNorm: 376842 1 Capsule(s) Oral every day 06/24/2019 10/26/2019 Inactive duloxetine 60 mg capsule,delayed release RxNorm: 794832 1 Capsu le(s) PO daily 04/14/2019 06/23/2019 Inactive this is what she nee ds - not the 30mg dose duloxetine 30 mg capsule,delayed release RxNorm: 302964 1 Capsu le(s) PO daily 04/14/2019 04/14/2019 Inactive omeprazole 40 mg capsule,delayed release RxNorm: 691301 1 Capsu le(s) PO BID 02/23/2019 06/22/2019 Inactive Pristiq 50 mg tablet,extended release RxNorm: 194843 1 Tablet(s ) PO daily 02/23/2019 04/13/2019 Inactive Pristiq 25 mg tablet,extended release RxNorm: 9882201 1 Tablet(s ) PO daily 01/25/2019 01/24/2019 Inactive Pristiq 25 mg tablet,extended release RxNorm: 1813676 1 Tablet(s ) PO daily 01/25/2019 02/22/2019 Inactive Lyrica 50 mg capsule RxNorm: 072656 1 Capsule(s) PO BID 01/07/2019 Inactive Lyrica 50 mg capsule RxNorm: 321391 1 Capsule(s) PO TID 12/23/2018 Inactive Lyrica 50 mg capsule RxNorm: 653242 1 Capsule(s) PO TID 12/23/2018 Inactive duloxetine 30 mg capsule,delayed release RxNorm: 677679 1 Capsu le(s) PO daily 11/11/2018 11/10/2018 Inactive duloxetine 30 mg capsule,delayed release RxNorm: 296064 1 Capsu le(s) PO daily 11/11/2018 01/01/2019 Inactive Questran Light 4 gram oral powder RxNorm: 8148486 1/2 packet PO BID 10/27/2018 11/05/2018 Inactive pramipexole 1 mg tablet RxNorm: 529896 1 Tablet(s) PO QHS 10/27/2018 02/22/2019 Inactive pramipexole 0.5 mg tablet RxNorm: 480831 1 Tablet(s) PO QHS 019 10/19/2018 Inactive pramipexole 0.5 mg tablet RxNorm: 323096 1 Tablet(s) PO QHS 019 10/26/2018 Inactive pramipexole 0.125 mg tablet RxNorm: 115540 1 Tablet(s) PO QHS 10/0410/19/2018 Inactive hyoscyamine 0.125 mg sublingual tablet RxNorm: 7658326 1 Tablet( s) SL as needed 10/04/2018 Active Vitamin D3 1,000 unit tablet RxNorm: 496047 1 Tablet(s) PO daily 09/08 Active Taytulla 1 mg-20 mcg (24)/75 mg (4) capsule RxNorm: 2487305 1 Capsule(s) PO daily 10/31/2020 10/30/2020 Inactive Xanax 0.5 mg tablet RxNorm: 841849 1 Tablet(s) PO as needed 020 12/07/2019 Inactive duloxetine 60 mg capsule,delayed release RxNorm: 761243 1 Capsu le(s) PO daily 04/14/2019 11/10/2018 Inactive omeprazole 40 mg capsule,delayed release RxNorm: 825304 1 Capsu le(s) PO daily 02/23/2019 02/22/2019 Inactive Medication Administered No Medication Administered data Immunizations No Immunization data Results Observation Observation Code Item Item Code Result Date S ervice Location Estrogens, Total LC 362783 ESTROGENS, TOTAL 912 PG/ML Unknown Ferritin Ord22 FERRITIN 47.8 ng/mL 11/20/2020 Unknown Lh Ord19 LH 60.12 mIU/mL 11/20/2020 Unknow n Progesterone Qvi067 Prog 1.49 ng/mL 11/20/2020 Unkno wn Fsh Ord18 FSH 10.07 mlU/ml 11/20/2020 Unknow n Estrogens, Total LC 833369 ESTROGENS, TOTAL 48 PG/ML Unknown FSH/LH E613 FSH <0.3 IU/L 10/25/2020 Unknown FSH/LH E613 LH 0.5 IU/L 10/25/2020 Unknown PROGESTERONE E548 PROGESTERONE <0.10 ng/mL 10/25/2020 U nknown Lipid Ord30 CHOL 238 mg/dL 10/16/2020 Unknown Lipid Ord30 HDL 59.0 mg/dl 10/16/2020 Unknown Lipid Ord30 TRIG 187 mg/dL 10/16/2020 Unknown Lipid Ord30 LDL 142 mg/dL 10/16/2020 Unknown Lipid Ord30 C/HDL 4.0 Ratio 10/16/2020 Unknown Comp Metabolic Rox839 NA 140 mEq/L 10/16/2020 Unkn own Comp Metabolic Fks099 K 4.0 mEq/L 10/16/2020 Unkn own Comp Metabolic Eqv819 CL 108 mEq/L 10/16/2020 Unkn own Comp Metabolic Cfp068 CO2 27.0 mEq/L 10/16/2020 Unk nown Comp Metabolic Bhr345 ANION GAP 9 10/16/2020 Unkn own Comp Metabolic Dyq313 GLUCOSE 100 mg/dL 10/16/2020 Unkn own Comp Metabolic Vuu594 Creat 0.7 mg/dL 10/16/2020 Unkn own Comp Metabolic Svm480 eGFR 114 ml/min/1.73m2 021 Unknown Comp Metabolic Poz363 BUN 10 mg/dL 10/16/2020 Unkn own Comp Metabolic Ydt039 B/C Ratio 15.4 Ratio 10/16/2020 Unk nown Comp Metabolic Rig595 CALCIUM 9.0 mg/dL 10/16/2020 Unkn own Comp Metabolic Cjx437 ALK PHOS 70 U/L 10/16/2020 Unkn own Comp Metabolic Tqe499 AST(SGOT) 17 U/L 10/16/2020 Unkn own Comp Metabolic Ilu147 ALT(SGPT) 19 U/L 10/16/2020 Unkn own Comp Metabolic Jci592 BILI T 0.5 mg/dL 10/16/2020 Unkn own Comp Metabolic Pyf846 ALBUMIN 4.0 g/dL 10/16/2020 Unkn own Comp Metabolic Qdc196 TPRO 6.5 g/dL 10/16/2020 Unkn own Comp Metabolic Law486 GLOB 2.5 g/dL 10/16/2020 Unkn own Comp Metabolic Ifd033 A/G Ratio 1.6 Ratio 10/16/2020 Unkn own Comp Metabolic Dfp016 Osmo 279 mOsmo 10/16/2020 Unkn own Tsh Ord6 TSH (3rd IS) 1.85 uIU/mL 10/16/2020 Unkn own Sed Rate Ord21 ESR 3 mm/hr 10/16/2020 Unknown Ferritin Ord22 FERRITIN 31.5 ng/mL 10/16/2020 Unknown Cbc With Differential Ord2 WBC 5.14 K/ul 10/16/19 21 Unknown Cbc With Differential Ord2 RBC 4.68 M/ul 10/16/19 21 Unknown Cbc With Differential Ord2 HGB 12.5 g/dl 10/16/19 21 Unknown Cbc With Differential Ord2 HCT 39.2 % 10/16/19 21 Unknown Cbc With Differential Ord2 Neut% 47.2 % 10/16/19 21 Unknown Cbc With Differential Ord2 MCV 83.8 fl 10/16/19 21 Unknown Cbc With Differential Ord2 Lymph% 41.2 % 10/16/19 21 Unknown Cbc With Differential Ord2 MCH 26.7 pg 10/16/19 21 Unknown Cbc With Differential Ord2 [place]% 8.9 % 10/16/19 21 Unknown Cbc With Differential Ord2 MCHC 31.9 pg 10/16/19 21 Unknown Cbc With Differential Ord2 Eos% 1.9 % 10/16/19 21 Unknown Cbc With Differential Ord2 PLT 337 K/ul 10/16/19 21 Unknown Cbc With Differential Ord2 Baso% 0.8 % 10/16/19 21 Unknown Cbc With Differential Ord2 RDW 16.9 % 10/16/19 21 Unknown Cbc With Differential Ord2 Neut ABS# 2.42 K/ul 10/16/19 21 Unknown Cbc With Differential Ord2 Lymph ABS# 2.12 K/ul 021 Unknown Cbc With Differential Ord2 [place] ABS# 0.5 K/ul 10/16/19 21 Unknown Cbc With Differential Ord2 Eos ABS# 0.1 K/ul 10/16/19 21 Unknown Cbc With Differential Ord2 Baso ABS# 0.0 K/ul 10/16/19 21 Unknown Tibc Ord40 Iron 98 ug/dl 10/16/2020 Unknown Tibc Ord40 UIBC 289 ug/dL 10/16/2020 Unknown Tibc Ord40 TIBC 387 ug/dL 10/16/2020 Unknown Tibc Ord40 Fe-%Sat 25.3 % 10/16/2020 Unknown Procedures No Procedures data Vital Signs Date Vital 10/15/2020 Blood Pressure 1: 122/74 Code: 8480-6 BMI: 21.9 Code: 74486-1 Heart Rate 1: 103 bpm Height: 5'7" Code: 8302-2 Respiratory Rate: 18 bpm SpO2: 99% Temperature: 36.3 (C) / 97.3 (F) Weight: 140 lbs Code: 10261-4 12/08/2019 Blood Pressure 1: 120/66 Code: 8480-6 BMI: 20.8 Code: 10003-7 Heart Rate 1: 111 bpm Height: 5'7" Code: 8302-2 SpO2: 98% Temperature: 3 6.9 (C) / 98.5 (F) Weight: 133 lbs Code: 37075-2 10/27/2019 Blood Pressure 1: 126/74 Code: 8480-6 BMI: 20.5 Code: 23198-3 Heart Rate 1: 105 bpm Height: 5'7" Code: 8302-2 Respiratory Rate: 16 bpm SpO2: 98% Weight: 131 lbs Code: 75508-8 02/23/2019 Blood Pressure 1: 134/70 Code: 8480-6 BMI: 20.0 Code: 99232-4 Heart Rate 1: 85 bpm Height: 5'7" Code: 8302-2 SpO2: 99% Weight: 128 lb s Code: 57319-3 10/27/2018 Blood Pressure 1: 130/82 Code: 8480-6 BMI: 19.4 Code: 74762-7 Heart Rate 1: 116 bpm Height: 5'7" Code: 8302-2 SpO2: 99% Weight: 124 lb s Code: 08502-8 10/04/2018 Blood Pressure 1: 138/80 Code: 8480-6 BMI: 19.4 Code: 13602-7 Heart Rate 1: 112 bpm Height: 5'7" Code: 8302-2 SpO2: 99% Weight: 124 lb s Code: 24340-3 Functional Status No Functional Status data Reason For Visit Reason For Visit Effective Dates Notes anxiety 10/15/2020 spasms/spasticity 12/08/2019 spasms/spasticity 10/27/2019 spasms/spasticity 02/23/2019 spasms/spasticity 10/27/2018 abdominal pain 10/04/2018 Encounters Encounter Performer Location Codes ([id number]) [id number] EST. PATIENT, LEVEL IV Diagnosis: Periodic limb movement disorder[ICD10: G47.61] Diagnosis: Major depressive disorder, single episode, moderate[ICD10: F32.1] Diagnosis: Generalized anxiety disorder[ICD10: F41.1] Diagnosis: Sinus congestion[ICD10: R09.81] Marielle parra MD, [facility] CPT-4: 49852 10/15/2020 ([id number]) 68196 EST. PATIENT, LEVEL III Diagnosis: Periodic limb movement disorder[ICD10: G47.61] Diagnosis: Major depressive disorder, single episode, moderate[ICD10: F32.1] Marielle Haley MD, [facility] CPT-4: 38056 12/08/2019 ([id number]) 02578 EST. PATIENT, LEVEL IV Diagnosis: Periodic limb movement disorder[ICD10: G47.61] Diagnosis: Mixed irritable bowel syndrome[ICD10: K58.2] Diagnosis: Major depressive disorder, single episode, moderate[ICD10: F32.1] Marielle Haley MD, [facility] CPT-4: 23825 10/27/2019 ([id number]) 11515 EST. PATIENT, LEVEL III Diagnosis: Mixed irritable bowel syndrome[ICD10: K58.2] Diagnosis: Periodic limb movement disorder[ICD10: G47.61] Diagnosis: Gastro-esophageal reflux disease without esophagitis[ICD10: K21.9] Marielle Haley MD, [facility] CPT-4: 57400 02/23/2019 ([id number]) 28245 EST. PATIENT, LEVEL III Diagnosis: Right upper quadrant pain[ICD10: R10.11] Diagnosis: Periodic limb movement disorder[ICD10: G47.61] Marielle Haley MD, [facility] CPT-4: 14050 10/27/2018 ([id number]) PREV VISIT NEW AGE 18-39 Diagnosis: Encounter for general adult medical examination without abnormal findings[ICD10: Z00.00] Marielle Haley MD, [facility] CPT-4: 59072 10/04/2018 Plan of Care Planned Activity Notes Codes Status Date Patient Education: Patient Medication Summary Completed 10/23/2020 Care Plan: Fsh Pending 10/23/2020 Care Plan: Lh Pending 10/23/2020 Care Plan: Estrogens Total Pending 10/23/2020 Care Plan: Progesterone Pending 10/08 Care Plan: Ferritin Pending 10/23/19 Visit Plan: Irritable bowel syndrome - s ymptoms stable on Cymbalta. Esophageal Reflux - the patient has been counseled against excessive intake of caffeine, spicy foods, peppermint, and cinnamon - all of which can exacerbate esophageal reflux. The patient is to take medications as prescribed and call the office if the symptoms are not improving. Periodic Limb movement disorder - with Depression - agree with appt at [facility], monitor symptoms. Allergies - chronic - recommended pt to use allergy medication as prescribed. Pt has been counseled as to the appropriate use of the medication. Pt to call if allergy symptoms are not controlled with the medication. If using nasal spray, instructions as follows: Nasal spray- use twice daily, one spray per nostril twice daily, after 30 minutes, rinse out nose with saline spray.. Use opposite hand per nostril to spray in the nasal steroid allergy spray. 10/15/2020 App[facility]ment: [facility] [phone] [facility] (15 min) Moderate 10/15/2020 Patient Education: Patient Medication Summary Completed 10/15/2020 Patient Education: Depression Completed 10/15/2020 Visit Plan: Noctural movement disorder - pt intolerant of usual medications - will give a low dose ativan trial to see if this helps. Chronic Depression and anxiety - the pt has symptoms of chronic anxiety and depression that have been fairly well controlled since the last office visit. The pt has expected periods of exacerbation with abatement of the symptoms with change in situational exposure. No change in current medications. 12/08/2019 Appointment: Marielle Haley [facility] [phone] [facility] (15 min) Moderate 12/08/2019 Patient Education: Patient Medication Summary Completed 12/08/2019 Patient Education: Depression Completed 12/08/2019 Visit Plan: Irritable bowel syndrome - s ymptoms improved on the Cymbalta. Esophageal Reflux - the patient has been counseled against excessive intake of caffeine, spicy foods, peppermint, and cinnamon - all of which can exacerbate esophageal reflux. The patient is to take medications as prescribed and call the office if the symptoms are not improving. Periodic Limb movement disorder - with Depression - increase cymbalta to 90mg daily, may need to add in mirapex 0.5mg daily. 10/27/2019 Patient Education: Patient Medication Summary Completed 10/27/2019 Patient Education: Depression Completed 10/27/2019 Visit Plan: Irritable bowel syndrome - s ymptoms not well controlled advised pt to modify her diet to low fat, low spice. Esophageal Reflux - the patient has been counseled against excessive intake of caffeine, spicy foods, peppermint, and cinnamon - all of which can exacerbate esophageal reflux. The patient is to take medications as prescribed and call the office if the symptoms are not improving. Periodic Limb movement disorder - with Depression - recommendation is for the patient to increase Pristiq to 50mg daily. 02/23/2019 Appointment: Mar[facility] H[facility] [phone] [facility] (15 min) Moderate 02/23/2019 Patient Education: Patient Medication Summary Completed 02/23/2019 Visit Plan: Abdominal pain - with diarrh ea/loose stools - discussed with pt - will order a gallbladder ultrasound and she will start on questran. - She will have a 10 day trial on the questran. She is to call with her symptoms. Restless Leg Syndrome - uncontrolled symptoms - pt to start on higher dose of pramipexole. 10/27/2018 Appointment: Marielle Haley [facility] [phone] [facility] [place] (15 min) Moderate 10/27/2018 Patient Education: Patient Medication Summary Completed 10/27/2018 Visit Plan: Well Adult - pt was counsele d about diet, exercise, and encouraged to follow [...] on probiotic. 10/04/2018 Appointment: Marielle Haley [facility]Ptel[facility] [place] New Patient 10/04/2018 Patient Education: Patient Medication Summary Completed 10/04/2018 Instructions Comment Date Flonase or Nasonex Nasal spray- use twic e daily, one spray per nostril twice daily, after 30 minutes, rinse out nose with saline spray.. Use opposite hand per nostril to spray in the nasal steroid allergy spray. align probiotics . Irritable bowel syndrome - symptoms st able on Cymbalta. Esophageal Reflux - the patient has been counseled against excessive intake of caffeine, spicy foods, peppermint, and cinnamon - all of which can exacerbate esophageal reflux. The patient is to take medications as prescribed and call the office if the symptoms are not improving. Periodic Limb movement disorder - with Depression - agree with appt at [facility], monitor symptoms. Allergies - chronic - recommended pt to use allergy medication as prescribed. Pt has been counseled as to the appropriate use of the medication. Pt to call if allergy symptoms are not controlled with the medication. If using nasal spray, instructions as follows: Nasal spray- use twice daily, one spray per nostril twice daily, after 30 minutes, rinse out nose with saline spray.. Use opposite hand per nostril to spray in the nasal steroid allergy spray. 10/15/2020 . Noctural movement disorder - pt intole rant of usual medications - will give a low dose ativan trial to see if this helps. Chronic Depression and anxiety - the pt has symptoms of chronic anxiety and depression that have been fairly well controlled since the last office visit. The pt has expected periods of exacerbation with abatement of the symptoms with change in situational exposure. No change in current medications. 12/08/2019 . Irritable bowel syndrome - symptoms im proved on the Cymbalta. Esophageal Reflux - the patient has been counseled against excessive intake of caffeine, spicy foods, peppermint, and cinnamon - all of which can exacerbate esophageal reflux. The patient is to take medications as prescribed and call the office if the symptoms are not improving. Periodic Limb movement disorder - with Depression - increase cymbalta to 90mg daily, may need to add in mirapex 0.5mg daily. 10/27/2019 . Irritable bowel syndrome - symptoms no t well controlled advised pt to modify her diet to low fat, low spice. Esophageal Reflux - the patient has been counseled against excessive intake of caffeine, spicy foods, peppermint, and cinnamon - all of which can exacerbate esophageal reflux. The patient is to take medications as prescribed and call the office if the symptoms are not improving. Periodic Limb movement disorder - with Depression - recommendation is for the patient to increase Pristiq to 50mg daily. 02/23/2019 . Abdominal pain - with diarrhea/loose s tools - discussed with pt - will order a gallbladder ultrasound and she will start on questran. - She will have a 10 day trial on the questran. She is to call with her symptoms. Restless Leg Syndrome - uncontrolled symptoms - pt to start on higher dose of pramipexole. 10/27/2018 . Well Adult - pt was counseled about di et, exercise, and encouraged to follow a heart [...] avoid food triggers, start on probiotic. 10/04/2018 Medical Equipment No Medical Equipment data Health Concerns Section Health Concerns data not found Goals Section Goals data not found Interventions Section Interventions data not found Health Status Evaluations/Outcomes Section Health Status Evaluations/Outcomes data not found Advance Directives No Advance Directive data
--- OUTSIDE RECORDS SUMMARY | 2021-08-21 12:11 | XMS REPORT | Encounter Summary ---
Author Author [facility] Organization [facility] Address Unknown Phone Unavailable Care Team Providers Care Marketing [employer]eps [employer] Name Role Phone Marielle Haley MD PCP Reason for Visit * Reason Comments Sleep Problem Encounter Details Care Team Description Date Type Department Gracy Moore MD [address] [place] [address] [id number] Chronic night sweats; Arthritis; Idiopathic hypersomnolence; PLMD (periodic limb movement disorder) 07/17/2021 Office Visit [facility] and Telehealth Neurology Sleep Medicine: [address] [place] [address] Social History Date Tobacco Use Types Packs/Day [...] at Date Recorded 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 female. History of Present Illness Obtained patient's, or patient proxy's, verbal consent to treat them and their a greement to [facility] financial policy and NPP via this telehealth visit during the [facility] Emergency Video Past month more days of waking up tired. Trazodone helps her some, but even sometimes still wake up tired. Would like to improve sleep. BT before 10 pm, sometimes by 8 pm Wake 4:30 am waking sometimes. Nightsweats - it's disgusting like she ran a mile in her sleep. Fibro 7 years ago dx by activity manager, but feet and hands get swollen. Hands/joints is where pain is, not muscles Started, elbow hurts now. 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 Review of Systems Constitutional: Positive for fatigue and unexpected weight change. Respiratory: Negative. Neurological: Positive for dizziness, light-headedness and headaches. Psychiatric/Behavioral: Positive for agitation and confusion. The patient is ner vous/anxious. All other systems reviewed and are negative. Objective: ADDERALL XR 20 mg capsule TAKE ONE CAPSULE BY MOUTH EVERY MORNING [START ON 07/29/2021] amphetamine-dextroamphetamine XR (ADDERALL XR) 20 mg c apsule Take 1 capsule po Q AM [START ON 08/26/2021] amphetamine-dextroamphetamine XR (ADDERALL XR) 20 mg c apsule Take 1 capsule po Q AM amphetamine-dextroamphetamine XR (ADDERALL XR) 20 mg capsule Take one capsul e by mouth every morning amphetamine-dextroamphetamine XR (ADDERALL XR) 20 mg capsule Take one capsul e by mouth every morning amphetamine-dextroamphetamine XR (ADDERALL XR) 20 mg capsule Take one capsul e by mouth every morning amphetamine-dextroamphetamine XR (ADDERALL XR) 20 mg capsule Take one capsul e by mouth every morning cetirizine (ZYRTEC) 10 mg tablet Take 10 mg by mouth every morning. cyclobenzaprine (FLEXERIL) 5 mg tablet 1-2 po q 9 pm dextroamphetamine-amphetamine (ADDERALL) 20 mg tablet Take one-half tablet t o one tablet by mouth twice daily as needed duloxetine DR (CYMBALTA) 60 mg capsule Take 60 mg by mouth daily. Lactobacillus acidophilus (PROBIOTIC PO) Take by mouth every [address] (PRILOSEC) 40 mg capsule Take 40 mg by mouth daily before rochelle kfast. traZODone (DESYREL) 50 mg tablet Take one-half tablet to one tablet by mouth at bedtime as needed for Sleep. vitamins, multi w/minerals 9 mg iron-400 mcg tab Take 1 tablet by mouth aubrey y. There were no vitals filed for this visit. There is no height or weight on file to calculate BMI. Physical Exam Video: Alert. Fluent. No apparent distress. No difficulty speaking or breathi ng. Logical speech. Upbeat mood. Assessment and Plan: * Telehealth Patient Reported Vitals Row Name 07/17/21 1105 BP: (!) 142/86 Pulse: 116 Weight: 55.8 kg (123 lb) Height: 170.2 cm (67") Pain Score: Zero *The patient's [place] Sleepiness Scale Score is 6/24. If score > 3 there is a high probability that they have CASTRO. Depression Screening was performed on Ban Jones in clinic today. Based on e score of 2, no follow up action or recommendations are necessary at this time There is no height or weight on file to calculate BMI. .* Problem Chronic Night Sweats Since age 28 or so. Arthritis Mom dx with seronegative RA Plmd (Periodic Limb Movement Disorder) PSG 2019 hypnic jerk, moves legs and tosses and turn all night long. Idiopathic Hypersomnolence [place] in senior year of high school and a second time 12/14/2019 MSLT mean latency 8 min, no REM onset naps but on Cymbalta. SP in past, HH yes, cataplexy no Trazodone in past Idiopathic hypersomnolence Adderall XR 20 mg - the patient is benefiting with no side effects. Continue pr esent management. Notes that on days she wakes feeling less rested she also wakes with swollen miller ds and achy joints. Her mom got dx recently with seronegative RA. Patient is going to go to PCP to get assessed for autoimmune disease. This would make sense if on her sleepier days she was having inflammation contributing to fatigue. For the days she is more fatigued, today I prescribed Adderall IR 20 mg 1/2-1 po bid PRN. Discussed risks/benefits/SE/alternatives. Potential side effects with stimulants include: headache, tremor, palpitations (strong, rapid heart beat), irritability among others. All of these side effects can be worsened when caff eine is used at the same time as the stimulants. Discussed my departure from . She will be offered follow up with Dr. Ana muñoz. PLMD (periodic limb movement disorder) No improvement with iron infusion 2020. Trazodone helps with movement and restorative nature of sleep. This helped more than tizanidine so d/c'd tizanidine today. Chronic night sweats Potential causes for her: Duloxetine? PLMD? Arthritis She will set up appt with PCP to discuss joint pain. 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 ERSION MIXER * Assessment & Plan Note - Gracy Moore MD - 07/17/2021 12:58 PM DISPERSION MIXER Associated Problem(s): Chronic night sweats Potential causes for her: Duloxetine? PLMD? ERSION MIXER * Assessment & Plan Note - Gracy Moore MD - 07/17/2021 12:52 PM DISPERSION MIXER Associated Problem(s): PLMD (periodic limb movement disorder) No improvement with iron infusion 2020. Trazodone helps with movement and restorative nature of sleep. This helped more than tizanidine so d/c'd tizanidine today. ERSION MIXER * Assessment & Plan Note - Gracy Moore MD - 07/17/2021 11:57 AM DISPERSION MIXER Associated Problem(s): Idiopathic hypersomnolence Adderall XR 20 mg - the patient is benefiting with no side effects. Continue pr esent management. Notes that on days she wakes feeling less rested she also wakes with swollen miller ds and achy joints. Her mom got dx recently with seronegative RA. Patient is going to go to PCP to get assessed for autoimmune disease. This would make sense if on her sleepier days she was having inflammation contributing to fatigue. For the days she is more fatigued, today I prescribed Adderall IR 20 mg 1/2-1 po bid PRN. Discussed risks/benefits/SE/alternatives. Potential side effects with stimulants include: headache, tremor, palpitations (strong, rapid heart beat), irritability among others. All of these side effects can be worsened when caff eine is used at the same time as the stimulants. Discussed my departure from . She will be offered follow up with Dr. Ana muñoz. ERSION MIXER documented in this encounter Discontinued Medications Start Date End Date Medication Sig Discontinue Reason 07/17/2021 Magnesium 250 mg tab Take by mouth. 12/28/2020 07/17/2021 tiZANidine (ZANAFLEX) 2 Take one mg capsule capsule by mouth at bedtime as needed. documented as of this encounter Historical Medications * This list may reflect changes made after this encounter. Start Date End Date Medication Sig Dispensed Refills vitamins, multi Take 1 tablet 0 w/minerals 9 mg iron-400 by mouth mcg tab daily. added in this encounter Additional Health Concerns Noted Time Assessment 11/08/2020 9:12 AM DISPERSION MIXER PHQ-9 Depression Total Score: 20 07/17/2021 11:06 AM DISPERSION MIXER A fall risk assessment has been complet ed for the patient 07/17/2021 11:07 AM DISPERSION MIXER PHQ-2 Depression Total Score: 2 documented as of this encounter Care Teams Start Date End Date Marketing [employer] Relationship Specialty 11/06/20 Marielle Haley MD PCP - General Family [address] [place] [address] documented as of this encounter
--- OUTSIDE RECORDS SUMMARY | 2021-08-21 12:11 | XMS REPORT | Clinical Summary ---
Author Author [facility] Organization [facility] Address Unknown Phone Unavailable Care Team Providers Care Tube Cleaning Operator Name Role Phone Marielle Haley MD PCP Source Comments Some departments are not documenting in the electronic medical record. If you d o not see the information that you expected, contact [facility] of Information in [facility] Management department at [phone] for further assistan ce in locating additional records.[facility] Allergies Comments Active Allergy Reactions Severity Noted Date Sulfa (Sulfonamide HIVES Medium 11/08/2020 Antibiotics) Medications End Date Status Medication Sig Dispensed Refills Start Date Active omeprazole DR (PRILOSEC) Take 40 mg by 0 40 mg capsule mouth daily before breakfast. Active cetirizine (ZYRTEC) 10 mg Take 10 mg by 0 tablet mouth every morning. Active duloxetine DR (CYMBALTA) Take 60 mg by 0 60 mg capsule mouth daily. Active Lactobacillus acidophilus Take by 0 (PROBIOTIC PO) mouth every 48 hours. Active cyclobenzaprine 1-2 po q 9 pm 60 tablet 1 11/09/19 2 (FLEXERIL) 5 mg tablet 1 Active amphetamine-dextroampheta Take 1 30 capsule 0 mine XR (ADDERALL XR) 20 capsule po Q 1 mg capsule AM Active vitamins, multi Take 1 tablet 0 w/minerals 9 mg iron-400 by mouth mcg tab daily. Active dextroamphetamine-ampheta Take one-half 30 tablet 0 mine (ADDERALL) 20 mg tablet to one 1 tablet tablet by mouth twice daily as needed Active traZODone (DESYREL) 50 mg TAKE 1/2 TO 1 30 tablet 5 tablet TABLET BY 1 MOUTH AT BEDTIME NEEDED FOR SLEEP Active amphetamine-dextroampheta Take 1 30 capsule 0 mine XR (ADDERALL XR) 20 capsule po Q 2 mg capsule AM Active amphetamine-dextroampheta Take 1 30 capsule 0 mine XR (ADDERALL XR) 20 capsule po Q 2 mg capsule AM 08/16/2021 Discontinued (Other) amphetamine-dextroampheta Take one 30 capsule 0 mine XR (ADDERALL XR) 20 capsule by 1 mg capsule mouth every morning 08/16/2021 Discontinued (Other) amphetamine-dextroampheta Take one 30 capsule 0 mine XR (ADDERALL XR) 20 capsule by 1 mg capsule mouth every morning 08/16/2021 Discontinued (Other) amphetamine-dextroampheta Take one 30 capsule 0 mine XR (ADDERALL XR) 20 capsule by 1 mg capsule mouth every morning 08/16/2021 Discontinued (Other) amphetamine-dextroampheta Take one 30 capsule 0 mine XR (ADDERALL XR) 20 capsule by 1 mg capsule mouth every morning 08/16/2021 Discontinued traZODone (DESYREL) 50 mg Take one-half 30 tablet 3 tablet tablet to one 1 tablet by mouth at bedtime as needed for Sleep. 08/16/2021 Discontinued (Other) ADDERALL XR 20 mg capsule TAKE ONE 30 capsule 0 CAPSULE BY 1 MOUTH EVERY MORNING 08/16/2021 Discontinued (Reorder) amphetamine-dextroampheta Take 1 30 capsule 0 mine XR (ADDERALL XR) 20 capsule po Q 1 mg capsule AM Active Problems Problem Noted Date Chronic night sweats 07/17/2021 Overview: Formatting of this note might be differ ent from the original. Since age 28 or so. Last Assessment & Plan: Formatting of this note might be differ ent from the original. Potential causes for her: Duloxetine? PLMD? Arthritis 07/17/2021 Overview: Formatting of this note might be differ ent from the original. Mom dx with seronegative RA L ast Assessment & Plan: Formatting of this note might be differ ent from the original. She will set up appt with PCP to discus s joint pain. PLMD (periodic limb movement disorder) 02/14/2021 Overview: Formatting of this note might be differ ent from the original. PSG 2019 hypnic jerk, moves legs and to sses and turn all night long. L ast Assessment & Plan: Formatting of this note might be differ ent from the original. No improvement with iron infusion 2020. Trazodone helps with movement and marco rative nature of sleep. This helped more than tizanidine so d/c 'd tizanidine today. Idiopathic hypersomnolence 11/08/2020 Overview: Formatting of this note might be differ ent from the original. [place] in senior year of high school and a second time 12/14/2019 MSLT mean latency 8 min, no RE M onset naps but on Cymbalta. SP in past, HH yes, cataplexy no Trazodone in past L ast Assessment & Plan: Formatting of this note might be differ ent from the original. Adderall XR 20 mg - the patient is bene fiting with no side effects. Continue present management. Notes that on days she wakes feeling le ss rested she also wakes with swollen hands and achy joints. Her mom got dx recently with seronegati ve RA. Patient is going to go to PCP to get assessed for autoimmune dise ase. This would make sense if on her sleepier days she was having inflam mation contributing to fatigue. For the days she is more fatigued, toda y I prescribed Adderall IR 20 mg 1/2-1 po bid PRN. Discussed risks/bene fits/SE/alternatives. Potential side effects with stimulants include: h eadache, tremor, palpitations (strong, rapid heart beat), irritabilit y among others. All of these side effects can be worsened when caffeine i s used at the same time as the stimulants. Discussed my departure from . She david l be offered follow up with Dr. Stacy. Fibromyalgia 11/08/2020 Last Assessment & Plan: Formatting of this note might be differ ent from the original. Cyclobenzapine - Discussed risks/benefi ts/SE/alternatives. Other irritable bowel syndrome 11/08/2020 Overview: Formatting of this note might be differ ent from the original. IBS, reflux Depression 11/08/2020 Encounters Care Team Description Date Type Specialty Gracy Moore MD 08/14/2021 Refill Neurology Gracy Moore MD Chronic night sweats; Arthritis; Idiopathic hypersomnolence; PLMD (periodic limb movement disorder) 07/17/2021 Office Visit Neurology Telehealth Gracy Moore MD 07/01/2021 Refill Neurology from Last 3 Months Surgical History Surgery Date Site/Laterality Comments GALLBLADDER SURGERY 09/07/2018 - 09/06/2019 WISDOM TEETH EXTRACTION 09/07/2010 - 09/06/2011 CYST REMOVAL 09/07/2010 - Right 09/06/2011 Medical History Medical History Date Comments Other dysphagia Fibromyalgia Family History Medical History Relation Name Comments Cancer Maternal Grandmother Hypertension Mother Stroke Other Cancer Paternal Grandmother Relation Name Status Comments Maternal Grandmother Mother Other Paternal Grandmother Social History Date Tobacco Use Types Packs/Day [...] at Date Recorded 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 Last Filed Vital Signs Not on file Plan of Treatment Health Maintenance Due Date Last Done Comments HIV SCREENING 2006 DTAP/TDAP VACCINES ( - 2009 Tdap) HEPATITIS C SCREENING 2009 PHYSICAL (COMPREHENSIVE) 2009 EXAM CERVICAL CANCER SCREENING 2012 INFLUENZA VACCINE 04/07/2021 Results Not on filefrom Last 3 Months Insurance Type Payer Benefit Subscriber ID Effective Phone Address Plan / Dates Group PPO [facility] [id number] 2020-P [phone] [id number] [facility] [place] [address] Advance Directives Patient 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 [address]
--- OUTSIDE RECORDS SUMMARY | 2021-08-21 12:11 | XMS REPORT | Encounter Summary ---
Author Author [facility] Organization [facility] Address Unknown Phone Unavailable Care Team Providers Care Roofing Supervisor Name Role Phone Marielle Haley MD PCP Reason for Visit * Reason Comments Medication Refill Encounter Details Care Team Description Date Type Department Gracy Moore MD [address], [address] [place] [id number] 07/01/2021 Refill [facility]rology: [facility] [address] [place] [address]. 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 Per protocol refill routed to Dr Moore for jaxon roval. documented in this encounter Plan of Treatment Not on filedocumented as of this encounter Visit Diagnoses Not on filedocumented in this encounter Discontinued Medications Start Date End Date Medication Sig Discontinue Reason 05/21/2021 07/01/2021 amphetamine-dextroampheta Take one mine XR (ADDERALL XR) 20 capsule by mg capsule mouth every morning documented as of this encounter Additional Health Concerns Noted Time Assessment 11/08/2020 9:12 AM TIRE MOUNTER PHQ-9 Depression Total Score: 20 02/14/2021 9:33 AM CDT A fall risk assessment has been complet ed for the patient 02/14/2021 9:33 AM CDT PHQ-2 Depression Total Score: 2 documented as of this encounter Care Teams Start Date End Date Roofing Supervisor Relationship Specialty 11/06/20 Marielle Haley MD PCP - General Family [address] [place] [id number] documented as of this encounter
--- OUTSIDE RECORDS SUMMARY | 2021-08-21 12:11 | XMS REPORT | CCD ---
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 Any refills authorized will be placed on file. duloxetine 60 mg capsule,delayed release RxNorm: 691213 TAKE ONE (1) CAPSULE BY MOUTH DAILY WITH 30 MG CAPSULE TO EQUAL 90 MG 08/12/2021 11/09/2021 Ac tive This prescription was filled on 07/19/2021. Any refills authorized will be placed on file. omeprazole 40 mg capsule,delayed release RxNorm: 800406 TAKE 1 CAPSULE BY MOUTH TWICE DAILY 03/27/2021 07/24/2021 Inactive This prescriptio n was filled on 03/04/2021. Any refills authorized will be placed on file. duloxetine 60 mg capsule,delayed release RxNorm: 207948 TAKE ONE (1) CAPSULE BY MOUTH DAILY WITH 30 MG CAPSULE TO EQUAL 90 MG 11/12/2020 11/12/2020 In active omeprazole 40 mg capsule,delayed release RxNorm: 753589 TAKE 1 CAPSULE BY MOUTH TWICE DAILY 10/05/2020 10/05/2020 Inactive omeprazole 40 mg capsule,delayed release RxNorm: 572314 1C PO BID 03/05/2020 08/01/2020 Inactive lorazepam 0.5 mg tablet RxNorm: 421996 0.5 - 1 Tablet(s) Oral t wo times a day 12/08/2019 01/07/2020 Inactive duloxetine 30 mg capsule,delayed release RxNorm: 234364 1 Capsule(s) Oral every day 10/27/2019 05/24/2020 Inactive this is in addit ion to the 60 mg dose - for a total of 90 mg duloxetine 60 mg capsule,delayed release RxNorm: 528943 1 Capsule(s) Oral every day 10/27/2019 10/21/2020 Inactive this is in addit ion to the 30 mg dose - for a total of 90 mg omeprazole 40 mg capsule,delayed release RxNorm: 976521 1C PO BID 10/03/2019 12/31/2019 Inactive duloxetine 30 mg capsule,delayed release RxNorm: 406807 1 Capsule(s) Oral every day 06/24/2019 10/26/2019 Inactive duloxetine 60 mg capsule,delayed release RxNorm: 559117 1 Capsu le(s) PO daily 04/14/2019 06/23/2019 Inactive this is what she nee ds - not the 30mg dose duloxetine 30 mg capsule,delayed release RxNorm: 396340 1 Capsu le(s) PO daily 04/14/2019 04/14/2019 Inactive omeprazole 40 mg capsule,delayed release RxNorm: 574660 1 Capsu le(s) PO BID 02/23/2019 06/22/2019 Inactive Pristiq 50 mg tablet,extended release RxNorm: 726692 1 Tablet(s ) PO daily 02/23/2019 04/13/2019 Inactive Pristiq 25 mg tablet,extended release RxNorm: 1201195 1 Tablet(s ) PO daily 01/25/2019 01/24/2019 Inactive Pristiq 25 mg tablet,extended release RxNorm: 3518644 1 Tablet(s ) PO daily 01/25/2019 02/22/2019 Inactive Lyrica 50 mg capsule RxNorm: 470947 1 Capsule(s) PO BID 01/07/2019 Inactive Lyrica 50 mg capsule RxNorm: 479833 1 Capsule(s) PO TID 12/23/2018 Inactive Lyrica 50 mg capsule RxNorm: 641899 1 Capsule(s) PO TID 12/23/2018 Inactive duloxetine 30 mg capsule,delayed release RxNorm: 554513 1 Capsu le(s) PO daily 11/11/2018 11/10/2018 Inactive duloxetine 30 mg capsule,delayed release RxNorm: 524951 1 Capsu le(s) PO daily 11/11/2018 01/01/2019 Inactive Questran Light 4 gram oral powder RxNorm: 3443004 /2 packet PO BID 10/27/2018 11/05/2018 Inactive pramipexole 1 mg tablet RxNorm: 198359 1 Tablet(s) PO QHS 10/27/2018 02/22/2019 Inactive pramipexole 0.5 mg tablet RxNorm: 221404 1 Tablet(s) PO QHS 019 10/19/2018 Inactive pramipexole 0.5 mg tablet RxNorm: 299092 1 Tablet(s) PO QHS 019 10/26/2018 Inactive pramipexole 0.125 mg tablet RxNorm: 688468 1 Tablet(s) PO QHS 10/0410/19/2018 Inactive hyoscyamine 0.125 mg sublingual tablet RxNorm: 9240270 1 Tablet( s) SL as needed 10/04/2018 Active Vitamin D3 1,000 unit tablet RxNorm: 724018 1 Tablet(s) PO daily 09/08 Active Taytulla 1 mg-20 mcg (24)/75 mg (4) capsule RxNorm: 7276445 1 Capsule(s) PO daily 10/31/2020 10/30/2020 Inactive Xanax 0.5 mg tablet RxNorm: 746584 1 Tablet(s) PO as needed 020 12/07/2019 Inactive duloxetine 60 mg capsule,delayed release RxNorm: 350855 1 Capsu le(s) PO daily 04/14/2019 11/10/2018 Inactive omeprazole 40 mg capsule,delayed release RxNorm: 443046 1 Capsu le(s) PO daily 02/23/2019 02/22/2019 Inactive Medication Administered No Medication Administered data Immunizations No Immunization data Results Observation Observation Code Item Item Code Result Date S ervice Location Estrogens, Total LC 905329 ESTROGENS, TOTAL 912 PG/ML Unknown Ferritin Ord22 FERRITIN 47.8 ng/mL 11/20/2020 Unknown Lh Ord19 LH 60.12 mIU/mL 11/20/2020 Unknow n Progesterone Blu585 Prog 1.49 ng/mL 11/20/2020 Unkno wn Fsh Ord18 FSH 10.07 mlU/ml 11/20/2020 Unknow n Estrogens, Total LC 690010 ESTROGENS, TOTAL 48 PG/ML Unknown FSH/LH E613 [...] C/HDL 4.0 Ratio 10/16/2020 Unknown Comp Metabolic Pjm060 NA 140 mEq/L 10/16/2020 Unkn own Comp Metabolic Put887 K 4.0 mEq/L 10/16/2020 Unkn own Comp Metabolic Uoc896 CL 108 mEq/L 10/16/2020 Unkn own Comp Metabolic Aov940 CO2 27.0 mEq/L 10/16/2020 Unk nown Comp Metabolic Lft320 ANION GAP 9 10/16/2020 Unkn own Comp Metabolic Bcx112 GLUCOSE 100 mg/dL 10/16/2020 Unkn own Comp Metabolic Fws185 Creat 0.7 mg/dL 10/16/2020 Unkn own Comp Metabolic Jew324 eGFR 114 ml/min/1.73m2 021 Unknown Comp Metabolic Slb234 BUN 10 mg/dL 10/16/2020 Unkn own Comp Metabolic Ekg801 B/C Ratio 15.4 Ratio 10/16/2020 Unk nown Comp Metabolic Oyi099 CALCIUM 9.0 mg/dL 10/16/2020 Unkn own Comp Metabolic Sid641 ALK PHOS 70 U/L 10/16/2020 Unkn own Comp Metabolic Zbw428 AST(SGOT) 17 U/L 10/16/2020 Unkn own Comp Metabolic Nif548 ALT(SGPT) 19 U/L 10/16/2020 Unkn own Comp Metabolic Igj938 BILI T 0.5 mg/dL 10/16/2020 Unkn own Comp Metabolic Tty620 ALBUMIN 4.0 g/dL 10/16/2020 Unkn own Comp Metabolic Edy938 TPRO 6.5 g/dL 10/16/2020 Unkn own Comp Metabolic Nvb988 GLOB 2.5 g/dL 10/16/2020 Unkn own Comp Metabolic Jso618 A/G Ratio 1.6 Ratio 10/16/2020 Unkn own Comp Metabolic Mzg832 Osmo 279 mOsmo 10/16/2020 Unkn own Tsh [...] 10/16/19 21 Unknown Cbc With Differential Ord2 [place]% 8.9 % 10/16/19 21 Unknown Cbc With [...] K/ul 021 Unknown Cbc With Differential Ord2 [place] ABS# 0.5 K/ul 10/16/19 21 Unknown Cbc With Differential Ord2 Eos ABS# 0.1 K/ul 10/16/19 21 Unknown Cbc With Differential Ord2 Baso ABS# 0.0 K/ul 02/09/20 21 Unknown Tibc Ord40 Iron 98 ug/dl 10/16/2020 Unknown Tibc Ord40 UIBC 289 ug/dL 10/16/2020 Unknown Tibc Ord40 TIBC 387 ug/dL 10/16/2020 Unknown Tibc Ord40 Fe-%Sat 25.3 % 10/16/2020 Unknown Procedures No Procedures data Vital Signs Date Vital 10/15/2020 Blood Pressure 1: 122/74 Code: 8480-6 BMI: 21.9 Code: 17482-0 Heart Rate 1: 103 bpm Height: 5'7" Code: 8302-2 Respiratory Rate: 18 bpm SpO2: 99% Temperature: 36.3 (C) / 97.3 (F) Weight: 140 lbs Code: 19074-5 12/08/2019 Blood Pressure 1: 120/66 Code: 8480-6 BMI: 20.8 Code: 48211-5 Heart Rate 1: 111 bpm Height: 5'7" Code: 8302-2 SpO2: 98% Temperature: 3 6.9 (C) / 98.5 (F) Weight: 133 lbs Code: 14069-2 10/27/2019 Blood Pressure 1: 126/74 Code: 8480-6 BMI: 20.5 Code: 06644-6 Heart Rate 1: 105 bpm Height: 5'7" Code: 8302-2 Respiratory Rate: 16 bpm SpO2: 98% Weight: 131 lbs Code: 00922-4 02/23/2019 Blood Pressure 1: 134/70 Code: 8480-6 BMI: 20.0 Code: 42423-2 Heart Rate 1: 85 bpm Height: 5'7" Code: 8302-2 SpO2: 99% Weight: 128 lb s Code: 71669-1 10/27/2018 Blood Pressure 1: 130/82 Code: 8480-6 BMI: 19.4 Code: 02829-0 Heart Rate 1: 116 bpm Height: 5'7" Code: 8302-2 SpO2: 99% Weight: 124 lb s Code: 94128-5 10/04/2018 Blood Pressure 1: 138/80 Code: 8480-6 BMI: 19.4 Code: 99522-7 Heart Rate 1: 112 bpm Height: 5'7" Code: 8302-2 SpO2: 99% Weight: 124 lb s Code: 99022-1 Functional Status No Functional Status data Reason For Visit Reason For Visit Effective Dates Notes anxiety 10/15/2020 spasms/spasticity 12/08/2019 spasms/spasticity 10/27/2019 spasms/spasticity 02/23/2019 spasms/spasticity 10/27/2018 abdominal pain 10/04/2018 Encounters Encounter Performer Location Codes ( EST. PATIENT, LEVEL IV Diagnosis: Periodic limb movement disorder[ICD10: G47.61] Diagnosis: Major depressive disorder, single episode, moderate[ICD10: F32.1] Diagnosis: Generalized anxiety disorder[ICD10: F41.1] Diagnosis: Sinus congestion[ICD10: R09.81] Marielle parra MD, [facility] CPT-4: 54529 10/15/2020 ([id number]) [id number] EST. PATIENT, LEVEL III Diagnosis: Periodic limb movement disorder[ICD10: G47.61] Diagnosis: Major depressive disorder, single episode, moderate[ICD10: F32.1] Marielle Haley MD, [facility] CPT-4: 20248 12/08/2019 ([id number]) [id number] EST. PATIENT, LEVEL IV Diagnosis: Periodic limb movement disorder[ICD10: G47.61] Diagnosis: Mixed irritable bowel syndrome[ICD10: K58.2] Diagnosis: Major depressive disorder, single episode, moderate[ICD10: F32.1] Marielle Haley MD, [facility] CPT-4: 63737 10/27/2019 ([id number]) 89940 EST. PATIENT, LEVEL III Diagnosis: Mixed irritable bowel syndrome[ICD10: K58.2] Diagnosis: Periodic limb movement disorder[ICD10: G47.61] Diagnosis: Gastro-esophageal reflux disease without esophagitis[ICD10: K21.9] Marielle Haley MD, [facility] CPT-4: 38036 02/23/2019 ([id number]) 95916 EST. PATIENT, LEVEL III Diagnosis: Right upper quadrant pain[ICD10: R10.11] Diagnosis: Periodic limb movement disorder[ICD10: G47.61] Marielle Haley MD, [facility] CPT-4: 21472 10/27/2018 ([id number]) PREV VISIT NEW AGE 18-39 Diagnosis: Encounter for general adult medical examination without abnormal findings[ICD10: Z00.00] [facility] CPT-4: 90019 10/04/2018 Plan of Care Planned Activity Notes [...] with Depression - agree with appt at [facility], monitor symptoms. Allergies - chronic - recommended [...] allergy spray. 10/15/2020 [facility] [phone] [id number] (15 min) Moderate 10/15/2020 Patient Education: Patient [...] current medications. 12/08/2019 [facility] [phone] [id number] (15 min) Moderate 12/08/2019 Patient Education: Patient [...] 50mg daily. 02/23/2019 Appointment: Marielle Haley WPtel: [address] [place], [place] [id number] (15 min) Moderate 02/23/2019 Patient Education: Patient [...] of pramipexole. 10/27/2018 Appointment: Marielle Haley WPtel: [address] [place], [place] [id number] [place] (15 min) Moderate 10/27/2018 Patient Education: [...] on probiotic. 10/04/2018 Appointment: Mar[id number] [facility] 10/04/2018 Patient Education: Patient Medication [...] with Depression - agree [facility], monitor symptoms. Allergies - chronic - recommended [...]
[2021-08-21] MEDS ORDERED: LACTATED RINGERS 1,000 ML IV STA (12:12)
[2021-08-21] MEDS ORDERED: LACTATED RINGERS 1,000 ML IV ONE (12:13)
[2021-08-21] MEDS ORDERED: LIDOCAINE JELLY 2% 6 ML SYRINGE MM PRN (12:15)
[2021-08-21] MEDS ORDERED: HURRICAINE EXT TUBE (BENZOCAINE) XX PRN (12:15)
--- NOTE | 2021-08-21 13:01 | Progress Note-Pre Operative ---
Pre-Operative Progress Note H&P Reviewed The H&P was reviewed, patient examined and no changes noted. Date Seen by Provider: Aug 21, 2021 Time Seen by Provider: 12:30 Date H&P Reviewed: Aug 21, 2021 Time H&P Reviewed: 12:30 Pre-Operative Diagnosis: anemia, GERD JOHANNY RUIZ MD Aug 21, 2021 13:01
--- NOTE | 2021-08-21 13:02 | Discharge Inst-Surgical ---
D/C Lap Instructions-JOSEPH Follow Up Activity as tolerated High Fiber Diet 25g or more per day Avoid Alcohol, Caffeine, Spicy [place] and Acid foods. Drink 64 fluid oz or more of fluids per day. Symptoms to Report: Fever over 101 degree F, Nausea/Vomiting If any problems/questions: Contact your physician or go to Emergency Room JOHANNY RUIZ MD Aug 21, 2021 13:02
[2021-08-21] MEDS ORDERED: ONDANSETRON 4 MG (ZOFRAN) ORAL DISSOLVE TAB PO PRN (13:15)
[2021-08-21] MEDS ORDERED: ONDANSETRON 4 MG/2 ML (SDV) Z0FRAN IVP PRN (13:15)
[2021-08-21] MEDS ORDERED: PROPOFOL INJECTION 50 ML IV ONE (13:46)
[2021-08-21] MEDS ORDERED: MIDAZOLAM 2 MG/2 ML (VERSED) VIAL ONE (13:52)
--- NOTE | 2021-08-21 14:41 | Anesthesia-General Post-Op ---
MAC Patient Condition Mental Status/LOC: Same as Preop Cardiovascular: Satisfactory Nausea/Vomiting: Absent Respiratory: Satisfactory Pain: Controlled Complications: Absent Post Op Complications Complications None Follow Up Care/Instructions Patient Instructions None needed. Anesthesiology Discharge Order Discharge Order Patient is doing well, no complaints, stable vital signs, no apparent adverse anesthesia problems. No complications reported per nursing. RAINER BEAR CRNA Aug 21, 2021 14:41
--- NOTE | 2021-08-21 14:50 | Progress Note-Post Operative ---
Post-Operative Progess Note Surgeon (s)/Automotive Fuel Injection Servicer (s) Surgeon JOHANNY RUIZ MD Automotive [employer] Injection Servicer: none Pre-Operative Diagnosis anemia, GERD Post-Operative Diagnosis reflux esophagitis(grade b), mild-mod gastritis. mild chronic stage 2 ext and int hemorrhoids. Procedure & Operative Findings Date of Procedure 08/21/21 Procedure Performed/Findings EGD with bx. Colonoscopy. Anesthesia Type mac Estimated Blood Loss Estimated blood loss (mL): minimal Specimens/Packing Specimens Removed ge jxn, antrum JOHANNY RUIZ MD Aug 21, 2021 14:50
--- NOTE | 2021-08-21 21:28 | OPERATIVE REPORT ---
DATE OF SERVICE: 08/21/2021 ATTENDING PRIMARY CARE PHYSICIAN: Marielle Haley MD PREOPERATIVE DIAGNOSES: Anemia, gastroesophageal reflux disease, irritable bowel syndrome. POSTOPERATIVE DIAGNOSES: Reflux esophagitis, Tullos grade B, no hiatal hernia, mild to moderate gastritis, no distal obstructions, mild chronic stage II external and internal hemorrhoids. PROCEDURE: EGD with biopsy, colonoscopy. SURGEON: Johanny Naranjo MD. ANESTHESIA: Monitored anesthesia care. ESTIMATED BLOOD LOSS: Minimal. FINDINGS: Reflux esophagitis, Tullos grade B, no hiatal hernia, mild to moderate gastritis, no distal obstructions, mild chronic stage II external and internal hemorrhoids. DISPOSITION: The patient tolerated the procedure well. INDICATIONS: The patient is a 31-year-old female known to us. She has had a longstanding history of gastrointestinal issues since her early 20s. She initially had issues with a crampy abdominal pain as well as diarrhea and inability to gain weight. We had done previous endoscopy on her and she was found to have reflux esophagitis as well as gastritis; however, no other abnormalities. She had recent blood work done and she was found to be anemic with hemoglobin of 10. She reports that she has normal light periods monthly. She is on Cymbalta for mood; however, also on D-amphetamine for hypersomnia, which may also be causing her weight loss and poor appetite. She does have a family history of inflammatory bowel disease with her mother having ulcerative colitis as well as a cousin with Crohn's disease. She also does report a grandparent with colon cancer. DESCRIPTION OF PROCEDURE: The patient was brought to the endoscopy suite, laid in the left lateral decubitus position. After adequate IV pain and sedative medications and monitored anesthesia care, the mouthpiece was applied. The endoscope was placed in the mouth, visualizing the pharynx and hypopharyngeal region. Vocal cords, epiglottis and vallecula identified and appeared to be normal. The endoscope was then gently intubated into the esophageal opening and esophagus insufflated. The endoscope was then advanced through the first, second and third portion of the esophagus at the level of the GE junction, reflux esophagitis grade B identified. No ulcers or strictures identified. A biopsy was taken with forceps with visualization of good hemostasis. The endoscope was then advanced into the stomach. The endoscope retroflexed visualizing no significant hiatal hernia. There was a mild to moderate gastritis towards the stomach antrum. No formal ulcerations, polyps, or any neoplasms. A biopsy was taken of the antrum to rule out H. pylori with visualization of good hemostasis. The endoscope was then advanced through the pylorus and the first and second portion of the duodenum, which appeared normal with no ulcerations or any distal obstructions. The endoscope was then slowly withdrawn while taking a second look and suctioning of residual air with no additional findings. A digital rectal examination was performed, which revealed chronic mild stage II external and internal hemorrhoids, not actively edematous nor inflamed and no bleeding. Normal sphincter tone was felt and there were no palpable masses. The endoscope was then intubated and anus and rectum gently insufflated. The endoscope was then advanced to the valves of Paez of the rectum with no polyps or any neoplasms identified. Through the sigmoid colon, no diverticulosis identified. The endoscope was then advanced through the remainder of the descending, transverse and ascending colon to the cecum. There were no mucosal inflammatory changes to indicate any inflammatory bowel disease as well as no polyps or any neoplasms. The endoscope was then slowly withdrawn while taking a second look and suctioning of residual air with no additional findings. The patient tolerated the procedure well. We will recommend continued medical management for now, we feel that a lot of her symptomatology is secondary to mood and affect as well as irritable bowel syndrome and anything she can do to reduce anxiety and stress may be beneficial. 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 If she does become more symptomatic, we will recommend that she restart her omeprazole. The colonoscopy for the most part was normal and again we will recommend continued medical management with a high fiber diet with at least 25 grams of fiber a day to promote soft stools on a daily basis. If she were to have a recurrent or worsening diarrhea as well as mucusy stools or bloody stools, we will have her follow up for repeat colonoscopy as well as biopsies as appropriate. CC: Dr. Gomez -- requested, unable to deliver. Job ID: [id number] DocumentID: [id number] Dictated Date: 08/21/2021 14:45:32 Athletic Gear Custodian Date: 08/21/2021 21:27:15 Dictated By: JOHANNY NARANJO MD [facility]ITALSkyler
== END 2021-08-21 15:48 | disposition home or self-care (01) ==
LOC: ENDO 12:07
PROVIDERS: ATTEND Surgery
DX: K21.00 Gastro-esophageal reflux disease with esophagitis, without bleeding (principal); K64.1 Second degree hemorrhoids; D50.0 Iron deficiency anemia secondary to blood loss (chronic); K29.50 Unspecified chronic gastritis without bleeding; G47.10 Hypersomnia, unspecified; K58.0 Irritable bowel syndrome with diarrhea; M79.7 Fibromyalgia; Z90.49 Acquired absence of other specified parts of digestive tract; Z79.2 Long term (current) use of antibiotics; Z79.899 Other long term (current) drug therapy
CPT/HCPCS: 88305

== ENCOUNTER 2023-01-08 17:53 | Emergency (ER) | payer OTHER, BC ==
[~2023-01-08] VITALS: Ht 170 cm; Wt 59.0 kg
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
[2023-01-08 19:47] VITALS: BP 113/84
== END 2023-01-08 19:47 | disposition home or self-care (01) ==
LOC: EDUNIT# 17:53 → ER 17:55
DX: S16.1XXA Strain of muscle, fascia and tendon at neck level, initial encounter (principal); M54.50 Low back pain, unspecified; M54.6 Pain in thoracic spine; V43.52XA Car driver injured in collision with other type car in traffic accident, initial encounter; Y92.410 Unspecified street and highway as the place of occurrence of the external cause
CPT/HCPCS: 70450; 72125; 72128; 72131